=== PATIENT | male | born 1960 | race Two or more races ===

== ENCOUNTER 2017-09-23 08:59 | Inpatient (IN) | payer SELFPAY ==
[2017-09-23] MEDS: methylPREDNISolone SOD SUCC PF 125 MG/2 ML VIAL. IV ×4 (09:14→23:59)
[2017-09-23] MEDS: IPRATRPIUM/ALBUTEROL 0.5/2.5MG 3 ML NEBU. NEB ×6 (09:24→23:10)
[2017-09-23 09:29] LABS: BASO # 0.1 x10^3/uL (0.0-0.2); BASO % 1 % (0-3); EOS # 4.3 x10^3/uL (0.0-0.7); EOS % 24 % (0-3); HEMATOCRIT 52.2 % (39.0-53.0); HEMOGLOBIN 17.7 g/dL (13.0-17.5); LYMPH # 3.2 x10^3/uL (1.0-4.8); LYMPH % 18 % (24-48); MEAN CORPUSCULAR HEMOGLOBIN 33 pg (25-35); MEAN CORPUSCULAR HGB CONC 34 g/dL (31-37); MEAN CORPUSCULAR VOLUME 97 fL (79-100); MONO # 1.5 x10^3/uL (0.0-1.1); MONO % 9 % (0-9); NEUT # 8.9 x10^3uL (1.8-7.7); NEUT % 49 % (31-73); PLATELET COUNT 278 x10^3/uL (140-400); RED BLOOD COUNT 5.38 x10^6/uL (4.30-5.70); RED CELL DISTRIBUTION WIDTH 13.3 % (11.5-14.5); WHITE BLOOD COUNT 17.9 x10^3/uL (4.0-11.0)
[2017-09-23 09:35] LABS: ADD MAN DIFF? YES
[2017-09-23] MEDS: ALBUTEROL SULFATE 2.5 MG/3 ML NEBU. CONT NEB (09:38)
[2017-09-23] MEDS ORDERED: PROPOFOL 50 ML IV (10:15)
[2017-09-23] MEDS ORDERED: NITROGLYCERIN OINT 1 GM PACKET. TP (10:15)
[2017-09-23 10:18] LABS: INFLUENZA A PATIENT NEGATIVE (NEGATIVE); INFLUENZA B PATIENT NEGATIVE (NEGATIVE); OBC FLU VALID
[2017-09-23] MEDS: PROPOFOL 10 MG/ML (20ML) VIAL. IV (10:22)
[2017-09-23 10:26] LABS: ANION GAP 8 (6-14); BLOOD UREA NITROGEN 12 mg/dL (8-26); BUN/CREATININE RATIO 17 (6-20); CALCIUM 9.2 mg/dL (8.5-10.1); CARBON DIOXIDE 32 mmol/L (21-32); CHLORIDE 98 mmol/L (98-107); CREATININE 0.7 mg/dL (0.7-1.3); GFR 116.7; GLUCOSE 137 mg/dL (70-99); POTASSIUM 4.8 mmol/L (3.5-5.1); SODIUM 138 mmol/L (136-145)
[2017-09-23] MEDS: IV NORMAL SALINE 1000ML BAG 1,000 ML IV ×3 (10:27→20:47)
[2017-09-23] MEDS: MIDAZOLAM HCL/PF 5 MG/5 ML VIAL. IV ×2 (10:27→10:44)
[2017-09-23] MEDS: fentaNYL PF VIAL 100 MCG/2 ML VIAL IV ×2 (10:28→11:03)
[2017-09-23] MEDS ORDERED: NOREPINEPHRINE VIAL 16 MG in IV NORMAL SALINE 250ML 250 ML IV (10:30)
[2017-09-23] MEDS ORDERED: NOREPINEPHRIN PREMIX 250 ML IV (10:30)
[2017-09-23] MEDS: AZITHRMYCN 500MG IVPB FOR OMNI 250 ML IV (10:33)
[2017-09-23 10:34] LABS: TROPONINI < 0.017 ng/mL (0.000-0.055)
[2017-09-23 10:36] LABS: BASE EXCESS ABG -4 mmol/L (-3-3); FIO2 ABG 10 lpm mask; HCO3 ABG 30 mmol/L (21-28); PCO2 ABG 94 mmHg (35-46); PH ABG 7.12 (7.35-7.45); PO2 ABG 232 mmHg (75-108); SAT O2 ABG 99 % (92-99)
[2017-09-23 10:42] LABS: ALBUMIN 4.2 g/dL (3.4-5.0); ALBUMIN/GLOBULIN RATIO 1.1 (1.0-1.7); ALK PHOS 88 U/L (46-116); ALT (SGPT) 14 U/L (16-63); AST (SGOT) 22 U/L (15-37); CKMB INDEX 5.3 % (0-4); CKMB MASS 4.9 ng/mL (0.0-3.6); CREATINE KINASE 92 U/L (39-308); TOTAL BILIRUBIN 1.5 mg/dL (0.2-1.0); TOTAL PROTEIN 7.9 g/dL (6.4-8.2)
[2017-09-23 10:48] LABS: LACTIC ACID 1.9 mmol/L (0.4-2.0)
[2017-09-23 10:48] LABS: % ATYL 1 % (0-0); % BANDS 2 % (0-9); % BASOS 2 % (0-3); % EOS 18 % (0-5); % LYMPHS 23 % (24-48); % MONOS 7 % (0-10); % SEGS 47 % (35-66); PLT ESTIMATE ADEQUATE (ADEQUATE)
[2017-09-23] MEDS: MAGNESIUM SULFATE 2GM 50 ML IV (10:50)
[2017-09-23] MEDS ORDERED: ONDANSETRON PF 4 MG/2 ML VIAL. IV (11:00)
[2017-09-23] MEDS: NOREPINEPHRIN PREMIX 250 ML IV (11:05)
[2017-09-23] MEDS ORDERED: VECURONIUM BOLUS 10 MG VIAL. IV (11:52)
[2017-09-23] MEDS: VECURONIUM BOLUS 10 MG VIAL. IV (12:00)
[2017-09-23] MEDS ORDERED: ENOXAPARIN 40 MG/0.4 ML SYRINGE. SQ (12:00)
[2017-09-23] MEDS: MIDAZOLAM 100MG/100ML PREMIX 100 ML IV ×2 (12:26→18:07)
[2017-09-23 12:59] LABS: BASE EXCESS ABG -7 mmol/L (-3-3); HCO3 ABG 21 mmol/L (21-28); PCO2 ABG 50 mmHg (35-46); PH ABG 7.24 (7.35-7.45); PO2 ABG > 503 mmHg (75-108); SAT O2 ABG 99 % (92-99)
[2017-09-23 13:05] LABS: FIO2 ABG 100
[2017-09-23] MEDS: cefTRIAXone IV Push 1 GM VIAL. IVP (13:11)
[2017-09-23] MEDS ORDERED: ETOMIDATE 20 MG/10 ML VIAL. IV (13:16)
[2017-09-23] MEDS ORDERED: SUCCINYLCHOLINE 200 MG/10 ML VIAL. (13:17)
[2017-09-23] MEDS: ALBUTEROL SULFATE 2.5 MG/3 ML NEBU. NEB ×3 (13:22→21:05)
[2017-09-23 17:45] LABS: TROPONINI < 0.017 ng/mL (0.000-0.055)
[2017-09-23] MEDS: ENOXAPARIN 40 MG/0.4 ML SYRINGE. SQ (18:07)
[2017-09-23] MEDS: FLU VACC QS2017-18 (36MOS+)/PF 0.5 ML SYRINGE. VAX IM (19:00)
[2017-09-23] MEDS: FAMOTIDINE 20 MG/2 ML VIAL IVP (20:47)
[2017-09-23 23:23] LABS: TROPONINI < 0.017 ng/mL (0.000-0.055)
[2017-09-24] MEDS: NOREPINEPHRIN PREMIX 250 ML IV (00:54)
[2017-09-24] MEDS: ALBUTEROL SULFATE 2.5 MG/3 ML NEBU. NEB (01:10)
[2017-09-24] MEDS: MIDAZOLAM 100MG/100ML PREMIX 100 ML IV ×3 (01:38→22:59)
[2017-09-24] MEDS: IV NORMAL SALINE 1000ML BAG 1,000 ML IV ×4 (02:15→23:41)
[2017-09-24] MEDS: IPRATRPIUM/ALBUTEROL 0.5/2.5MG 3 ML NEBU. NEB ×6 (03:10→23:56)
[2017-09-24 05:15] LABS: ADD MAN DIFF? NO
[2017-09-24] MEDS: methylPREDNISolone SOD SUCC PF 125 MG/2 ML VIAL. IV ×4 (05:33→23:41)
[2017-09-24 06:05] LABS: BASO % 0 % (0-3); EOS % 0 % (0-3); HEMATOCRIT 39.7 % (39.0-53.0); HEMOGLOBIN 13.2 g/dL (13.0-17.5); LYMPH # 0.6 x10^3/uL (1.0-4.8); LYMPH % 5 % (24-48); MEAN CORPUSCULAR HEMOGLOBIN 32 pg (25-35); MEAN CORPUSCULAR HGB CONC 33 g/dL (31-37); MEAN CORPUSCULAR VOLUME 97 fL (79-100); MONO # 0.4 x10^3/uL (0.0-1.1); MONO % 3 % (0-9); NEUT # 10.5 x10^3uL (1.8-7.7); NEUT % 92 % (31-73); PLATELET COUNT 214 x10^3/uL (140-400); RED BLOOD COUNT 4.09 x10^6/uL (4.30-5.70); RED CELL DISTRIBUTION WIDTH 13.2 % (11.5-14.5); WHITE BLOOD COUNT 11.5 x10^3/uL (4.0-11.0)
[2017-09-24 06:14] LABS: ANION GAP 11 (6-14); BLOOD UREA NITROGEN 11 mg/dL (8-26); CALCIUM 7.7 mg/dL (8.5-10.1); CARBON DIOXIDE 23 mmol/L (21-32); CHLORIDE 107 mmol/L (98-107); CREATININE 0.9 mg/dL (0.7-1.3); GFR 87.3; GLUCOSE 230 mg/dL (70-99); POTASSIUM 4.2 mmol/L (3.5-5.1); SODIUM 141 mmol/L (136-145)
[2017-09-24 06:16] LABS: MAGNESIUM 2.2 mg/dL (1.8-2.4)
[2017-09-24 08:27] LABS: BASE EXCESS ABG -2 mmol/L (-3-3); HCO3 ABG 23 mmol/L (21-28); PCO2 ABG 39 mmHg (35-46); PH ABG 7.38 (7.35-7.45); PO2 ABG 113 mmHg (75-108); SAT O2 ABG 98 % (92-99)
[2017-09-24 08:29] LABS: FIO2 ABG 40
[2017-09-24] MEDS: FAMOTIDINE 20 MG/2 ML VIAL IVP ×2 (08:33→21:08)
[2017-09-24] MEDS: cefTRIAXone IV Push 1 GM VIAL. IVP (13:43)
[2017-09-24 13:58] LABS: TROPONINI < 0.017 ng/mL (0.000-0.055)
[2017-09-24] MEDS ORDERED: AZITHRMYCN 500MG IVPB FOR OMNI 250 ML IV (15:15)
[2017-09-24] MEDS: ENOXAPARIN 40 MG/0.4 ML SYRINGE. SQ (16:09)
[2017-09-24] MEDS: AZITHROMYCIN 500 MG in IV NORMAL SALINE 250ML 250 ML IV (16:09)
[2017-09-24 21:13] LABS: MRSA BY PCR Negative (Negative)
[2017-09-25] MEDS: IPRATRPIUM/ALBUTEROL 0.5/2.5MG 3 ML NEBU. NEB ×6 (03:27→23:21)
[2017-09-25 05:29] LABS: ADD MAN DIFF? NO
[2017-09-25 05:44] LABS: BASO % 0 % (0-3); EOS % 0 % (0-3); HEMATOCRIT 37.3 % (39.0-53.0); HEMOGLOBIN 12.5 g/dL (13.0-17.5); LYMPH # 0.5 x10^3/uL (1.0-4.8); LYMPH % 4 % (24-48); MEAN CORPUSCULAR HEMOGLOBIN 32 pg (25-35); MEAN CORPUSCULAR HGB CONC 34 g/dL (31-37); MEAN CORPUSCULAR VOLUME 97 fL (79-100); MONO # 0.5 x10^3/uL (0.0-1.1); MONO % 3 % (0-9); NEUT # 13.3 x10^3uL (1.8-7.7); NEUT % 93 % (31-73); PLATELET COUNT 180 x10^3/uL (140-400); RED BLOOD COUNT 3.86 x10^6/uL (4.30-5.70); RED CELL DISTRIBUTION WIDTH 13.2 % (11.5-14.5); WHITE BLOOD COUNT 14.3 x10^3/uL (4.0-11.0)
[2017-09-25] MEDS: methylPREDNISolone SOD SUCC PF 125 MG/2 ML VIAL. IV ×3 (05:53→17:24)
[2017-09-25 06:09] LABS: ALBUMIN 2.4 g/dL (3.4-5.0); ALBUMIN/GLOBULIN RATIO 0.8 (1.0-1.7); ALK PHOS 42 U/L (46-116); ALT (SGPT) 9 U/L (16-63); ANION GAP 6 (6-14); AST (SGOT) 12 U/L (15-37); BLOOD UREA NITROGEN 11 mg/dL (8-26); BUN/CREATININE RATIO 16 (6-20); CALCIUM 7.6 mg/dL (8.5-10.1); CARBON DIOXIDE 27 mmol/L (21-32); CHLORIDE 108 mmol/L (98-107); CREATININE 0.7 mg/dL (0.7-1.3); GFR 116.7; GLUCOSE 243 mg/dL (70-99); MAGNESIUM 2.4 mg/dL (1.8-2.4); POTASSIUM 3.7 mmol/L (3.5-5.1); SODIUM 141 mmol/L (136-145); TOTAL BILIRUBIN 0.3 mg/dL (0.2-1.0); TOTAL PROTEIN 5.4 g/dL (6.4-8.2)
[2017-09-25 08:08] LABS: BASE EXCESS ABG -3 mmol/L (-3-3); HCO3 ABG 21 mmol/L (21-28); PCO2 ABG 35 mmHg (35-46); PH ABG 7.41 (7.35-7.45); PO2 ABG 127 mmHg (75-108); SAT O2 ABG 98 % (92-99)
[2017-09-25 08:11] LABS: FIO2 ABG 40
[2017-09-25] MEDS ORDERED: AZITHROMYCIN 500 MG in IV NORMAL SALINE 500ML BAG 500 ML IV (09:00)
[2017-09-25] MEDS: FAMOTIDINE 20 MG/2 ML VIAL IVP ×2 (09:24→21:34)
[2017-09-25] MEDS: AZITHROMYCIN 500 MG in IV NORMAL SALINE 250ML 250 ML IV (09:25)
[2017-09-25] MEDS: ALBUTEROL SULFATE 2.5 MG/3 ML NEBU. NEB ×3 (09:53→17:38)
[2017-09-25] MEDS: MIDAZOLAM 100MG/100ML PREMIX 100 ML IV (11:28)
[2017-09-25] MEDS: cefTRIAXone IV Push 1 GM VIAL. IVP (12:18)
[2017-09-25] MEDS: IV NORMAL SALINE 1000ML BAG 1,000 ML IV ×2 (12:25→17:24)
[2017-09-25] MEDS: PROPOFOL 100 ML IV (15:20)
[2017-09-25] MEDS: ENOXAPARIN 40 MG/0.4 ML SYRINGE. SQ (15:24)
[2017-09-25] MEDS ORDERED: AZITHRMYCN 500MG IVPB FOR OMNI 250 ML IV (16:00)
[2017-09-26] MEDS: PROPOFOL 100 ML IV ×2 (00:15→19:37)
[2017-09-26] MEDS: IV NORMAL SALINE 1000ML BAG 1,000 ML IV ×3 (01:25→19:37)
[2017-09-26] MEDS: ALBUTEROL SULFATE 2.5 MG/3 ML NEBU. NEB ×3 (01:32→09:00)
[2017-09-26] MEDS: IPRATRPIUM/ALBUTEROL 0.5/2.5MG 3 ML NEBU. NEB ×5 (04:07→20:07)
[2017-09-26] MEDS: methylPREDNISolone SOD SUCC PF 125 MG/2 ML VIAL. IV ×5 (06:01→23:55)
[2017-09-26] MEDS ORDERED: NITROGLYCERIN PREMIX 250 ML IV (07:00)
[2017-09-26] MEDS: LABETALOL 20 MG/4 ML DISP.SYRIN. IVP (09:09)
[2017-09-26] MEDS: CHLORHEXIDINE 0.12% 15 ML MOUTHWASH. MM ×2 (09:12→21:00)
[2017-09-26] MEDS: FAMOTIDINE 20 MG/2 ML VIAL IVP ×2 (09:14→21:06)
[2017-09-26 10:02] LABS: BASE EXCESS ABG 0 mmol/L (-3-3); HCO3 ABG 26 mmol/L (21-28); PCO2 ABG 47 mmHg (35-46); PH ABG 7.36 (7.35-7.45); PO2 ABG 102 mmHg (75-108); SAT O2 ABG 97 % (92-99)
[2017-09-26 10:22] LABS: FIO2 ABG 40
[2017-09-26] MEDS: hydrALAZINE 20 MG/ML VIAL. IVP (12:37)
[2017-09-26] MEDS ORDERED: DEXTROSE 50% 25 GM / 50ML DISP.SYRIN. IV (14:00)
[2017-09-26] MEDS: INSULIN DETEMIR 300 UNITS/3 ML INSULN.PEN. SQ (14:30)
[2017-09-26] MEDS: ENOXAPARIN 40 MG/0.4 ML SYRINGE. SQ (16:56)
[2017-09-26 17:10] LABS: POC GLUCOSE 197 mg/dL (70-99)
[2017-09-26] MEDS: INSULIN ASPART 300 UNITS/3 ML INSULN.PEN SQ (17:14)
[2017-09-27] MEDS: IPRATRPIUM/ALBUTEROL 0.5/2.5MG 3 ML NEBU. NEB ×7 (00:29→23:22)
[2017-09-27] MEDS: IV NORMAL SALINE 1000ML BAG 1,000 ML IV ×2 (03:17→10:05)
[2017-09-27] MEDS: PROPOFOL 100 ML IV (03:18)
[2017-09-27] MEDS: methylPREDNISolone SOD SUCC PF 125 MG/2 ML VIAL. IV ×4 (06:03→23:31)
[2017-09-27 09:03] LABS: BASE EXCESS ABG 3 mmol/L (-3-3); HCO3 ABG 27 mmol/L (21-28); PCO2 ABG 37 mmHg (35-46); PH ABG 7.48 (7.35-7.45); PO2 ABG 108 mmHg (75-108); SAT O2 ABG 98 % (92-99)
[2017-09-27] MEDS: LABETALOL 20 MG/4 ML DISP.SYRIN. IVP (10:02)
[2017-09-27] MEDS: FAMOTIDINE 20 MG/2 ML VIAL IVP ×2 (10:04→21:33)
[2017-09-27] MEDS: CHLORHEXIDINE 0.12% 15 ML MOUTHWASH. MM (10:04)
[2017-09-27] MEDS: INSULIN ASPART 300 UNITS/3 ML INSULN.PEN SQ ×3 (10:08→18:00)
[2017-09-27] MEDS: BUDESONIDE 0.5 MG/2 ML NEBU. NEB ×2 (11:36→19:22)
[2017-09-27 12:25] LABS: BASE EXCESS ABG 2 mmol/L (-3-3); HCO3 ABG 25 mmol/L (21-28); PO2 ABG 123 mmHg (75-108); SAT O2 ABG 98 % (92-99)
[2017-09-27 12:29] LABS: PH ABG 7.49 (7.35-7.45)
[2017-09-27 12:30] LABS: FIO2 ABG 40; PCO2 ABG 34 mmHg (35-46)
[2017-09-27 13:48] LABS: POC GLUCOSE 216 mg/dL (70-99)
[2017-09-27] MEDS: RACEPINEPHRINE 2.25% 0.5 ML NEBU. NEB (17:02)
[2017-09-27] MEDS: ENOXAPARIN 40 MG/0.4 ML SYRINGE. SQ (17:55)
[2017-09-27 18:04] LABS: POC GLUCOSE 167 mg/dL (70-99)
[2017-09-27] MEDS: fentaNYL PF VIAL 100 MCG/2 ML VIAL IV (20:20)
[2017-09-28] MEDS: fentaNYL PF VIAL 100 MCG/2 ML VIAL IV (00:11)
[2017-09-28] MEDS: ALBUTEROL SULFATE 2.5 MG/3 ML NEBU. NEB (01:01)
[2017-09-28] MEDS: IPRATRPIUM/ALBUTEROL 0.5/2.5MG 3 ML NEBU. NEB ×6 (03:21→23:23)
[2017-09-28] MEDS: methylPREDNISolone SOD SUCC PF 125 MG/2 ML VIAL. IV ×4 (03:35→19:35)
[2017-09-28] MEDS: IV NORMAL SALINE 1000ML BAG 1,000 ML IV (03:35)
[2017-09-28] MEDS: RACEPINEPHRINE 2.25% 0.5 ML NEBU. NEB (03:40)
[2017-09-28] MEDS: hydrALAZINE 20 MG/ML VIAL. IVP ×4 (04:14→10:46)
[2017-09-28 06:04] LABS: SAT O2 ABG 96 % (92-99)
[2017-09-28 06:15] LABS: BASE EXCESS ABG 4 mmol/L (-3-3); FIO2 ABG 50; HCO3 ABG 29 mmol/L (21-28); PCO2 ABG 40 mmHg (35-46); PH ABG 7.47 (7.35-7.45); PO2 ABG 88 mmHg (75-108)
[2017-09-28] MEDS: FUROSEMIDE 20 MG/2 ML VIAL. IVP (06:39)
[2017-09-28] MEDS: BUDESONIDE 0.5 MG/2 ML NEBU. NEB ×2 (07:35→19:35)
[2017-09-28] MEDS: PIPERACILLIN/TAZOBACTAM 3.375 GM in IV NORMAL SALINE 50ML 50 ML IV ×3 (08:31→17:07)
[2017-09-28] MEDS: ENOXAPARIN 40 MG/0.4 ML SYRINGE. SQ (08:31)
[2017-09-28] MEDS: BENZOCAINE/MENTHOL LOZENGE. PO (08:33)
[2017-09-28] MEDS: FAMOTIDINE 20 MG/2 ML VIAL IVP ×2 (08:36→21:33)
[2017-09-28] MEDS: MORPHINE SULFATE 2 MG/ML DISP.SYRIN. IV ×2 (09:23→17:07)
[2017-09-28] MEDS: INSULIN ASPART 300 UNITS/3 ML INSULN.PEN SQ ×3 (09:35→17:27)
[2017-09-28 09:57] LABS: ADD MAN DIFF? NO
[2017-09-28 10:18] LABS: BASO % 0 % (0-3); EOS % 0 % (0-3); HEMATOCRIT 47.1 % (39.0-53.0); LYMPH # 0.2 x10^3/uL (1.0-4.8); LYMPH % 1 % (24-48); MEAN CORPUSCULAR HEMOGLOBIN 33 pg (25-35); MEAN CORPUSCULAR HGB CONC 34 g/dL (31-37); MEAN CORPUSCULAR VOLUME 96 fL (79-100); MONO # 1.1 x10^3/uL (0.0-1.1); MONO % 6 % (0-9); NEUT # 16.9 x10^3uL (1.8-7.7); NEUT % 93 % (31-73); PLATELET COUNT 161 x10^3/uL (140-400); RED BLOOD COUNT 4.91 x10^6/uL (4.30-5.70); RED CELL DISTRIBUTION WIDTH 13.1 % (11.5-14.5); WHITE BLOOD COUNT 18.3 x10^3/uL (4.0-11.0)
[2017-09-28 10:21] LABS: ALBUMIN 2.6 g/dL (3.4-5.0); ALBUMIN/GLOBULIN RATIO 0.7 (1.0-1.7); ALK PHOS 56 U/L (46-116); ALT (SGPT) 20 U/L (16-63); ANION GAP 6 (6-14); AST (SGOT) 30 U/L (15-37); BLOOD UREA NITROGEN 17 mg/dL (8-26); BUN/CREATININE RATIO 28 (6-20); CALCIUM 7.9 mg/dL (8.5-10.1); CARBON DIOXIDE 36 mmol/L (21-32); CHLORIDE 100 mmol/L (98-107); CREATININE 0.6 mg/dL (0.7-1.3); GFR 139.4; GLUCOSE 203 mg/dL (70-99); POTASSIUM 3.1 mmol/L (3.5-5.1); SODIUM 142 mmol/L (136-145); TOTAL BILIRUBIN 0.6 mg/dL (0.2-1.0); TOTAL PROTEIN 6.2 g/dL (6.4-8.2)
[2017-09-28] MEDS ORDERED: LABETALOL 20 MG/4 ML DISP.SYRIN. IVP (12:45)
[2017-09-28] MEDS: LABETALOL 20 MG/4 ML DISP.SYRIN. IVP ×2 (12:52→21:32)
[2017-09-28 12:57] LABS: POC GLUCOSE 176 mg/dL (70-99)
[2017-09-28 17:29] LABS: POC GLUCOSE 167 mg/dL (70-99)
[2017-09-29] MEDS: methylPREDNISolone SOD SUCC PF 125 MG/2 ML VIAL. IV ×4 (00:11→17:10)
[2017-09-29] MEDS: PIPERACILLIN/TAZOBACTAM 3.375 GM in IV NORMAL SALINE 50ML 50 ML IV ×4 (00:12→17:10)
[2017-09-29] MEDS: IPRATRPIUM/ALBUTEROL 0.5/2.5MG 3 ML NEBU. NEB ×5 (03:21→19:51)
[2017-09-29 06:26] LABS: POC GLUCOSE 165 mg/dL (70-99)
[2017-09-29 06:26] LABS: POC GLUCOSE 165 mg/dL (70-99)
[2017-09-29] MEDS: BUDESONIDE 0.5 MG/2 ML NEBU. NEB ×2 (09:19→19:51)
[2017-09-29] MEDS: INSULIN ASPART 300 UNITS/3 ML INSULN.PEN SQ ×3 (09:54→17:15)
[2017-09-29 10:21] LABS: HEMATOCRIT 44.5 % (39.0-53.0); MEAN CORPUSCULAR HEMOGLOBIN 32 pg (25-35); MEAN CORPUSCULAR HGB CONC 34 g/dL (31-37); MEAN CORPUSCULAR VOLUME 96 fL (79-100); PLATELET COUNT 155 x10^3/uL (140-400); RED BLOOD COUNT 4.63 x10^6/uL (4.30-5.70); WHITE BLOOD COUNT 11.4 x10^3/uL (4.0-11.0)
[2017-09-29 10:34] LABS: ANION GAP 7 (6-14); BLOOD UREA NITROGEN 22 mg/dL (8-26); CALCIUM 7.8 mg/dL (8.5-10.1); CARBON DIOXIDE 33 mmol/L (21-32); CHLORIDE 99 mmol/L (98-107); CREATININE 0.7 mg/dL (0.7-1.3); GFR 116.7; GLUCOSE 252 mg/dL (70-99); MAGNESIUM 2.3 mg/dL (1.8-2.4); POTASSIUM 3.4 mmol/L (3.5-5.1); SODIUM 139 mmol/L (136-145)
[2017-09-29] MEDS: FAMOTIDINE 20 MG/2 ML VIAL IVP ×2 (11:12→20:29)
[2017-09-29] MEDS: ENOXAPARIN 40 MG/0.4 ML SYRINGE. SQ (17:10)
[2017-09-29] MEDS: LACTOBACILLUS RHAMNOSUS GG 1 CAPSULE. PO (20:29)
[2017-09-30] MEDS: IPRATRPIUM/ALBUTEROL 0.5/2.5MG 3 ML NEBU. NEB ×6 (00:02→19:36)
[2017-09-30] MEDS: methylPREDNISolone SOD SUCC PF 125 MG/2 ML VIAL. IV ×2 (00:23→06:09)
[2017-09-30] MEDS: PIPERACILLIN/TAZOBACTAM 3.375 GM in IV NORMAL SALINE 50ML 50 ML IV ×2 (00:23→06:09)
[2017-09-30 04:58] LABS: POC GLUCOSE 254 mg/dL (70-99)
[2017-09-30 04:58] LABS: POC GLUCOSE 211 mg/dL (70-99)
[2017-09-30 04:58] LABS: POC GLUCOSE 238 mg/dL (70-99)
[2017-09-30 04:58] LABS: POC GLUCOSE 200 mg/dL (70-99)
[2017-09-30] MEDS: BUDESONIDE 0.5 MG/2 ML NEBU. NEB ×2 (07:32→19:36)
[2017-09-30 08:10] LABS: HEMATOCRIT 42.9 % (39.0-53.0); HEMOGLOBIN 14.5 g/dL (13.0-17.5); MEAN CORPUSCULAR HEMOGLOBIN 32 pg (25-35); MEAN CORPUSCULAR HGB CONC 34 g/dL (31-37); MEAN CORPUSCULAR VOLUME 95 fL (79-100); PLATELET COUNT 171 x10^3/uL (140-400); RED BLOOD COUNT 4.49 x10^6/uL (4.30-5.70); RED CELL DISTRIBUTION WIDTH 12.8 % (11.5-14.5); WHITE BLOOD COUNT 9.2 x10^3/uL (4.0-11.0)
[2017-09-30 08:12] LABS: POC GLUCOSE 220 mg/dL (70-99)
[2017-09-30] MEDS: FAMOTIDINE 20 MG/2 ML VIAL IVP ×2 (08:17→22:51)
[2017-09-30] MEDS: LACTOBACILLUS RHAMNOSUS GG 1 CAPSULE. PO ×2 (08:17→22:48)
[2017-09-30] MEDS: INSULIN ASPART 300 UNITS/3 ML INSULN.PEN SQ ×3 (08:18→17:08)
[2017-09-30 08:28] LABS: ANION GAP 8 (6-14); BLOOD UREA NITROGEN 20 mg/dL (8-26); CALCIUM 8.4 mg/dL (8.5-10.1); CARBON DIOXIDE 31 mmol/L (21-32); CHLORIDE 101 mmol/L (98-107); CREATININE 0.6 mg/dL (0.7-1.3); GFR 139.4; GLUCOSE 229 mg/dL (70-99); POTASSIUM 3.2 mmol/L (3.5-5.1); SODIUM 140 mmol/L (136-145)
[2017-09-30] MEDS: predniSONE 20 MG TABLET PO (11:00)
[2017-09-30 13:42] LABS: POC GLUCOSE 268 mg/dL (70-99)
[2017-09-30] MEDS: ENOXAPARIN 40 MG/0.4 ML SYRINGE. SQ (17:04)
[2017-09-30 17:09] LABS: POC GLUCOSE 192 mg/dL (70-99)
[2017-09-30] MEDS ORDERED: POTASSIUM CHLORIDE 20 MEQ TABLET.ER. PO ×2 (18:15→18:30)
[2017-09-30] MEDS: POTASSIUM CHLORIDE 20 MEQ TABLET.ER. PO (22:49)
[2017-10-01] MEDS: IPRATRPIUM/ALBUTEROL 0.5/2.5MG 3 ML NEBU. NEB ×7 (00:12→23:37)
[2017-10-01] MEDS: BUDESONIDE 0.5 MG/2 ML NEBU. NEB ×2 (07:33→19:39)
[2017-10-01] MEDS: INSULIN ASPART 300 UNITS/3 ML INSULN.PEN SQ ×3 (08:00→17:29)
[2017-10-01 08:23] LABS: POC GLUCOSE 70 mg/dL (70-99)
[2017-10-01] MEDS: predniSONE 20 MG TABLET PO (08:54)
[2017-10-01] MEDS: FAMOTIDINE 20 MG/2 ML VIAL IVP (08:54)
[2017-10-01] MEDS: LACTOBACILLUS RHAMNOSUS GG 1 CAPSULE. PO ×2 (08:54→20:35)
[2017-10-01] MEDS ORDERED: ACETAMINOPHEN 500 MG TABLET PO (11:00)
[2017-10-01 11:23] LABS: POC GLUCOSE 147 mg/dL (70-99)
[2017-10-01] MEDS: IBUPROFEN 400 MG TABLET. PO (12:19)
[2017-10-01 16:36] LABS: POC GLUCOSE 219 mg/dL (70-99)
[2017-10-01] MEDS: ENOXAPARIN 40 MG/0.4 ML SYRINGE. SQ (17:24)
[2017-10-01] MEDS: FAMOTIDINE 20 MG TABLET. PO (20:35)
[2017-10-01 21:10] LABS: POC GLUCOSE 188 mg/dL (70-99)
[2017-10-02] MEDS: IPRATRPIUM/ALBUTEROL 0.5/2.5MG 3 ML NEBU. NEB ×4 (03:18→14:50)
[2017-10-02 07:50] LABS: POC GLUCOSE 101 mg/dL (70-99)
[2017-10-02] MEDS: BUDESONIDE 0.5 MG/2 ML NEBU. NEB (07:58)
[2017-10-02] MEDS: INSULIN ASPART 300 UNITS/3 ML INSULN.PEN SQ ×3 (08:00→17:18)
[2017-10-02] MEDS: FAMOTIDINE 20 MG TABLET. PO (08:33)
[2017-10-02] MEDS: LACTOBACILLUS RHAMNOSUS GG 1 CAPSULE. PO (08:33)
[2017-10-02] MEDS: predniSONE 20 MG TABLET PO (08:33)
[2017-10-02] MEDS: IBUPROFEN 400 MG TABLET. PO (08:37)
[2017-10-02 11:22] LABS: POC GLUCOSE 134 mg/dL (70-99)
[2017-10-02 16:29] LABS: POC GLUCOSE 202 mg/dL (70-99)
[2017-10-02] MEDS: ENOXAPARIN 40 MG/0.4 ML SYRINGE. SQ (17:08)
[2017-10-02] MEDS: FLU VACC QS2017-18 (36MOS+)/PF 0.5 ML SYRINGE. VAX IM (18:30)
== END 2017-10-02 19:26 | disposition home or self-care (01) | DRG 870 ==
LOC: 5 NORTH 09-30 20:25 → ER 08:59 → 1 WEST ICU 10:30
PROC: 5A1955Z Respiratory Ventilation, Greater than 96 Consecutive Hours (ICD-10-PCS; 2017-09-23)
PROC: 5A09357 Assistance with Respiratory Ventilation, Less than 24 Consecutive Hours, Continuous Positive Airway Pressure (ICD-10-PCS; principal; 2017-09-28)
DX: A41.89 Other specified sepsis (principal); R57.9 Shock, unspecified; J96.02 Acute respiratory failure with hypercapnia; J96.01 Acute respiratory failure with hypoxia; J45.902 Unspecified asthma with status asthmaticus; I16.0 Hypertensive urgency; J20.9 Acute bronchitis, unspecified; B97.89 Other viral agents as the cause of diseases classified elsewhere
CPT/HCPCS: 31500; 36415; 36600; 51702; 71045; 80048; 80053; 82553; 82805; 82962; 83605; 83735; 84484; 85007; 85025; 85027; 87040; 87641; 87804; 87804-59; 90686; 93005; 93306; 94002; 94003; 94640; 94644; 94660; 94760; 96365; 96375; 96376; 97110-GO; 97116-GP; 97162-GP; 97167-GO; 97530-GO; 97530-GP; 97535-GO; 99285-25; J0360; J0456; J0696; J1650; J1815; J2060; J2250; J2270; J2543; J2704; J2930; J3010; J3490; J7030; J7050; J7060; J7512; J7613; J7620; J7626; S0028

== ENCOUNTER 2018-05-01 10:40 | Inpatient (IN) | payer BC ==
[~2018-05-01] VITALS: Ht 162.6 cm; Wt 66.2 kg
[~2018-05-01 10:40] MED LIST: BREO ELLIPTA 11 EACH IH; BUDE180A IH; MONT10TA9 PO; PANT40TA5 PO; PRED-220 PO; PROAIR HFA8.5 GM INH
[2018-05-01] MEDS ORDERED: EPINEPHrine 1 MG/ML VIAL ONE (10:52)
--- NOTE | 2018-05-01 10:56 | EKG ---
[facility] [address] [place] [address] Test Date: 2018-05-01 Test Time: 10:46:35 Pat Name: JAMES LONDON Department: Room: Gender: M Domestic Maid: : 1960 Requested By: MAULIK NUNO Order Number: [id number] Reading MD: Cj Waggoner MD Measurements Intervals [place] Rate: 103 P: 45 MT: 58 QRS: 69 QRSD: 100 T: 45 QT: 392 QTc: 516 Interpretive Statements SINUS TACHYCARDIA NON-SPECIFIC ST/T CHANGES Electronically Signed On 05-01-2018 12:32:30 CDT by Cj Waggoner MD
[2018-05-01] MEDS ORDERED: IPRATRPIUM/ALBUTEROL 0.5/2.5MG 3 ML NEBU. NEB ONE (11:00)
[2018-05-01] MEDS ORDERED: methylPREDNISolone SOD SUCC PF 125 MG/2 ML VIAL. IV ONE (11:00)
[2018-05-01] MEDS ORDERED: EPINEPHrine 1 MG/ML VIAL SQ ONE (11:00)
[2018-05-01] MEDS ORDERED: ALBUTEROL SULFATE 2.5 MG/3 ML NEBU. ONE (11:07)
--- NOTE | 2018-05-01 11:14 | RAD ---
Portable chest, 05/01/2018: HISTORY: Shortness of breath, asthma, CHF Comparison is made to a study from 09/29/2017. The heart size and pulmonary vascularity are normal. The lungs are clear. There is no evidence of pleural fluid. IMPRESSION: No acute cardiopulmonary abnormality is detected. Electronically signed by: Prakash Chatman MD (05/01/2018 11:11 AM) [facility]
[2018-05-01 11:21] LABS: BASO % 1 % (0-3); EOS # 0.9 x10^3/uL (0.0-0.7); EOS % 10 % (0-3); HEMATOCRIT 51.1 % (39.0-53.0); HEMOGLOBIN 17.9 g/dL (13.0-17.5); LYMPH # 2.1 x10^3/uL (1.0-4.8); LYMPH % 25 % (24-48); MEAN CORPUSCULAR HEMOGLOBIN 34 pg (25-35); MEAN CORPUSCULAR HGB CONC 35 g/dL (31-37); MEAN CORPUSCULAR VOLUME 97 fL (79-100); MONO # 0.8 x10^3/uL (0.0-1.1); MONO % 9 % (0-9); NEUT # 4.9 x10^3uL (1.8-7.7); NEUT % 56 % (31-73); PLATELET COUNT 243 x10^3/uL (140-400); RED CELL DISTRIBUTION WIDTH 14.3 % (11.5-14.5); WHITE BLOOD COUNT 8.7 x10^3/uL (4.0-11.0)
[2018-05-01 11:23] LABS: BASE EXCESS COOX 2 mmol/L (-3-3); HCO3 COOX 29 mmol/L (21-28); METHEMOGLOBIN 0.4 % (0.0-1.9); OXYHEMOGLOBIN 95.9 %; PCO2 COOX 53 mmHg (35-46); PO2 COOX 91 mmHg (75-108); SAT O2 COOX 96 % (92-99)
[2018-05-01 11:27] LABS: CREATININE 0.9 mg/dL (0.7-1.3); POTASSIUM 4.2 mmol/L (3.5-5.1)
[2018-05-01 11:28] LABS: ALBUMIN 4.2 g/dL (3.4-5.0); ALBUMIN/GLOBULIN RATIO 1.3 (1.0-1.7); MAGNESIUM 2.6 mg/dL (1.8-2.4); TOTAL BILIRUBIN 0.6 mg/dL (0.2-1.0); TOTAL PROTEIN 7.5 g/dL (6.4-8.2)
--- NOTE | 2018-05-01 11:29 | PHYS DOC ---
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 Patient woke up this morning , having shortness of air and wheezing. Patient went to see his lung doctor, got a duoneb treatment in the clinic but continued to have shortness of air with worsen work of breathing so he was sent here for evaluation and treatment. Patient is not on oxygen at home. He denied any chest pain, no cough, no fever. Review of Systems Review of Systems Constitutional: Denies fever or chills [] Eyes: Denies change in visual acuity, redness, or eye pain [] HENT: Denies nasal congestion or sore throat [] Respiratory: positive for shortness of air and wheezing Cardiovascular: No additional information not addressed in HPI [] GI: Denies abdominal pain, nausea, vomiting, bloody stools or diarrhea [] : Denies dysuria or hematuria [] Musculoskeletal: Denies back pain or joint pain [] Integument: Denies rash or skin lesions [] Neurologic: Denies headache, focal weakness or sensory changes [] Endocrine: Denies polyuria or polydipsia [] All other systems were reviewed and found to be within normal limits, except as documented in this note. Current Medications Current Medications Current Medications Medications (Trade) Dose Ordered Sig/Renae Start Time Stop Time Status Last Admin Dose Admin Albuterol Sulfate (Ventolin Neb Soln) 2.5 mg STK-MED ONCE 05/01/18 11:07 05/01/18 11:08 DC Albuterol/ Ipratropium (Duoneb) 3 ml RTQID 05/01/18 12:00 05/02/18 11:59 Epinephrine HCl (Adrenalin) 1 mg STK-MED ONCE 05/01/18 10:52 05/01/18 10:53 DC Methylprednisolone Sodium Succinate (SOLU-Medrol 125MG VIAL) 125 mg 1X ONCE 05/01/18 11:00 05/01/18 11:01 DC 05/01/18 11:00 125 MG Sodium Chloride 1,000 ml @ 75 mls/hr [id number] 05/01/18 12:00 05/02/18 11:59 Allergies Allergies Allergies Coded Allergies Type Severity Reaction Last Updated Verified No Known Drug Allergies 04/21/17 No Physical Exam Physical Exam Constitutional: Well developed, well nourished, in moderate distress, diaphoresis. HENT: Normocephalic, atraumatic, bilateral external ears normal, oropharynx moist, no oral exudates, nose normal. [] Eyes: PERRLA, EOMI, conjunctiva normal, no discharge. [] Neck: Normal range of motion, no tenderness, supple, no stridor. [] Cardiovascular: sinus tachycardia with regular rhythm, no murmur [] Lungs & Thorax: decreased breath sound bilaterally, severe wheezing, tachypnic with accessory muscle involved, retraction, tripoding. Abdomen: Bowel sounds normal, soft, no tenderness, no masses, no pulsatile masses. [] Skin: diaphoresis Back: No tenderness, no CVA tenderness. [] Extremities: No tenderness, no cyanosis, no clubbing, ROM intact, no edema. [] Neurologic: Alert and oriented X 3, normal motor function, normal sensory function, no focal deficits noted. [] Psychologic: appeared very anxious. ] Current Patient Data Vital Signs Vital Signs Date Time Temp Pulse Resp B/P (MAP) Pulse Ox O2 Delivery O2 Flow Rate FiO2 05/01/18 11:38 98 Nasal Cannula 3.0 05/01/18 10:59 98.4 108 16 193/118 (143) 98.4 Lab Values Laboratory Tests Test 05/01/18 10:50 White Blood Count 8.7 x10^3/uL (4.0-11.0) Red Blood Count 5.30 x10^6/uL (4.30-5.70) Hemoglobin 17.9 g/dL (13.0-17.5) H Hematocrit 51.1 % (39.0-53.0) Mean Corpuscular Volume 97 fL (79-100) Mean Corpuscular Hemoglobin 34 pg (25-35) Mean Corpuscular Hemoglobin Concent 35 g/dL (31-37) Red Cell Distribution Width 14.3 % (11.5-14.5) Platelet Count 243 x10^3/uL (140-400) Neutrophils (%) (Auto) 56 % (31-73) Lymphocytes (%) (Auto) 25 % (24-48) Monocytes (%) (Auto) 9 % (0-9) Eosinophils (%) (Auto) 10 % (0-3) H Basophils (%) (Auto) 1 % (0-3) Neutrophils # (Auto) 4.9 x10^3uL (1.8-7.7) Lymphocytes # (Auto) 2.1 x10^3/uL (1.0-4.8) Monocytes # (Auto) 0.8 x10^3/uL (0.0-1.1) Eosinophils # (Auto) 0.9 x10^3/uL (0.0-0.7) H Basophils # (Auto) 0.0 x10^3/uL (0.0-0.2) Sodium Level 144 mmol/L (136-145) Potassium Level 4.2 mmol/L (3.5-5.1) Chloride Level 106 mmol/L (98-107) Carbon Dioxide Level 29 mmol/L (21-32) Anion Gap 9 (6-14) Blood Urea Nitrogen 7 mg/dL (8-26) L Creatinine 0.9 mg/dL (0.7-1.3) Estimated GFR (Cockcroft-Gault) 87.0 BUN/Creatinine Ratio 8 (6-20) Glucose Level 93 mg/dL (70-99) Calcium Level 9.0 mg/dL (8.5-10.1) Magnesium Level 2.6 mg/dL (1.8-2.4) H Total Bilirubin 0.6 mg/dL (0.2-1.0) Aspartate Amino Transferase (AST) 21 U/L (15-37) Alanine Aminotransferase (ALT) 19 U/L (16-63) Alkaline Phosphatase 87 U/L (46-116) Creatine Kinase 70 U/L (39-308) Creatine Kinase MB (Mass) 2.1 ng/mL (0.0-3.6) Creatine Kinase MB Relative Index % (0-4) Troponin I Quantitative < 0.017 ng/mL (0.000-0.055) RZ-[id number]-T-Type Natriuretic Peptide 84 pg/mL (0-124) Total Protein 7.5 g/dL (6.4-8.2) Albumin 4.2 g/dL (3.4-5.0) Albumin/Globulin Ratio 1.3 (1.0-1.7) Laboratory Tests 05/01/18 10:50 Laboratory Tests 05/01/18 10:50 EKG EKG EKG at 1048, heart rate of 103 bpm, sinus tachycardia, no STEMI,.... INCOMPLETE RBBB. Radiology/Procedures Radiology/Procedures [][facility] [address] [place] [address] IMAGING REPORT Signed PATIENT: JAMES LONDON ACCOUNT: [id number] : 1960 LOCATION: ER AGE: 57 SEX: M EXAM STATUS: PRE ER ORD. PHYSICIAN: MAULIK NUNO DO REASON: SOA PROCEDURE: PORTABLE CHEST 1V Portable chest, 05/01/2018: HISTORY: Shortness of breath, asthma, CHF Comparison is made to a study from 09/29/2017. The heart size and pulmonary vascularity are normal. The lungs are clear. There is no evidence of pleural fluid. IMPRESSION: No acute cardiopulmonary abnormality is detected. Electronically signed by: Prakash Chatman MD (05/01/2018 11:11 AM) [facility] DICTATED and SIGNED BY: PRAKASH CHATMAN MD DATE: 05/01/18 1110 Course & Med Decision Making Course & Med Decision Making Pertinent Labs and Imaging studies reviewed. (See chart for details) Patient presented to the ER in respiratory distress. He was put on monitor, oxygen applied. He was given .3 mg epinephrine IM, 125 mg solumedrol iv. He was also given a duoneb treatment, and put on 1 hour continuous neb. His condition was improved but continue to wheez, will admit him to the hospital for further evaluation and treatment, discussed lab result, EKG, chest xray and plan of care with patient and family. Total critical care time: [address] Chung, hospitalist, agreed to admit patient. Dragon Disclaimer Dragon Disclaimer This electronic medical record was generated, in whole or in part, using a voice recognition dictation system. Departure Departure Impression: Primary Impression: Asthma attack Disposition: ADMITTED INPATIENT Admitting Physician: Jacky Chung Condition: IMPROVED Referrals: NO PCP (PCP) MAULIK NUNO DO May 01, 2018 11:29
[2018-05-01 11:35] LABS: CREATINE KINASE 70 U/L (39-308)
[2018-05-01] MEDS: IPRATRPIUM/ALBUTEROL 0.5/2.5MG 3 ML NEBU. NEB SCH ×3 (12:00→19:44)
[2018-05-01 12:45] VITALS: BP 178/99
[2018-05-01] MEDS: IV NORMAL SALINE 1000ML BAG 1,000 ML IV SCH (13:50)
--- NOTE | 2018-05-01 14:30 | HP ---
ADMIT DATE: 05/01/2018 CHIEF COMPLAINT: Shortness of breath and wheezing. HISTORY OF PRESENT ILLNESS: The patient is a pleasant 57-year-old male from [facility]. He presented with shortness of breath and wheezing, he has known asthma. He rates his symptoms at 10/10. It should be noted that he was at Dr. Ramos's office earlier today, they sent him to the ER. When he hit the ER, they gave him IV steroids, IV epinephrine and a 1-hour continuous nebulizer. He is still wheezing quite a bit. I have discussed the case with the ER physician. We are going to admit the patient and consult Dr. Ramos. PAST MEDICAL HISTORY: Asthma. ALLERGIES: None. FAMILY HISTORY: Asthma. SOCIAL HISTORY: He does not drink, smoke or take drugs. He is from [facility]. MEDICATIONS: Reviewed, please refer to the MRAD. REVIEW OF SYSTEMS: GENERAL: No history of weight change, weakness or fevers. SKIN: No bruising, hair changes or rashes. EYES: No blurred, double or loss of vision. NOSE AND THROAT: No history of nosebleeds, hoarseness or sore throat. HEART: No history of palpitations, chest pain or shortness of breath on exertion. LUNGS: He complains of shortness of breath. GASTROINTESTINAL: Denies changes in appetite, nausea, vomiting, diarrhea or constipation. GENITOURINARY: No history of frequency, urgency, hesitancy or nocturia. NEUROLOGIC: Denies history of numbness, tingling, tremor or weakness. PSYCHIATRIC: No history of panic, anxiety or depression. ENDOCRINE: No history of heat or cold intolerance, polyuria or polydipsia. EXTREMITIES: Denies muscle weakness, joint pain, pain on walking or stiffness. PHYSICAL EXAMINATION: VITAL SIGNS: Temperature afebrile, pulse 120, respirations 18, blood pressure 193/118, O2 sat 96% on 3 liters. GENERAL: He is awake, alert. HEART: Normal S1, S2, tachycardic. LUNGS: Coarse throughout with wheezing everywhere. ABDOMEN: Soft. EXTREMITIES: Trace edema. SKIN: No rash. ENDOCRINE: No thyromegaly. LYMPHATICS: No cervical nodes. HEMATOPOIETIC: No bruising. LABORATORY DATA: Hemoglobin 17.9. Electrolytes are normal. Troponin 0. Chest x-ray, negative. ASSESSMENT AND PLAN: [id number] asthma exacerbation with respiratory failure. The patient has been admitted. We will treat with IV Solu-Medrol, frequent DuoNeb, oxygen per nasal cannula. We will try to resume his home meds. Consult Dr. Ramos, cardiac monitoring. PROGNOSIS: Guarded. NIAL Frandy GARZA DO DR: ARIANA/terrance JOB#: [id number] / [id number]
[2018-05-01] MEDS ORDERED: VENTOLIN HFA18 GM INH (14:47)
[2018-05-01] MEDS ORDERED: BUDE10.2 IH (14:48)
[2018-05-01 15:00] VITALS: BP 146/91
[2018-05-01 16:20] VITALS: BP 146/91
[2018-05-01] MEDS: methylPREDNISolone SOD SUCC PF 40 MG/ML VIAL. IV SCH ×2 (16:34→21:12)
[2018-05-01] MEDS ORDERED: ACETAMINOPHEN 500 MG TABLET PO PRN (17:15)
[2018-05-01] MEDS ORDERED: ONDANSETRON ODT 4 MG TAB.RAPDIS. PO PRN (17:15)
[2018-05-01] MEDS ORDERED: ONDANSETRON PF 4 MG/2 ML VIAL. IV PRN (17:15)
[2018-05-01] MEDS ORDERED: guaiFENesin DM 200MG/20MG 10 ML SYRUP PO PRN (17:15)
[2018-05-01] MEDS ORDERED: ACETAMINOPHEN/CODEINE 300/30MG TABLET. PO PRN (17:15)
[2018-05-01] MEDS: METOPROLOL TARTRATE 5 MG/5 ML VIAL. IVP SCH (17:34)
[2018-05-01 19:00] VITALS: BP 125/91
[2018-05-01] MEDS: MONTELUKAST SODIUM 10 MG TABLET. PO SCH (21:11)
[2018-05-01] MEDS: BENZONATATE 100 MG CAPSULE. PO SCH (21:11)
[2018-05-01 22:46] VITALS: BP 119/78
[2018-05-02] VITALS (7 sets, daily range): BP systolic 113–143; BP diastolic 69–91
[2018-05-02] MEDS: IV NORMAL SALINE 1000ML BAG 1,000 ML IV SCH (03:15)
[2018-05-02] MEDS: METOPROLOL TARTRATE 5 MG/5 ML VIAL. IVP SCH ×4 (06:00→18:00)
--- NOTE | 2018-05-02 07:38 | PDOC ---
Provider Note Provider Note [id number] acute resp fail ae of asthma ? phylicia see orders NILO MARTINEZ MD May 02, 2018 07:38
[2018-05-02] MEDS: IPRATRPIUM/ALBUTEROL 0.5/2.5MG 3 ML NEBU. NEB SCH ×4 (08:15→18:16)
[2018-05-02] MEDS: BUDESONIDE 0.5 MG/2 ML NEBU. NEB SCH ×2 (08:17→18:16)
[2018-05-02] MEDS: PANTOPRAZOLE 40 MG TABLET.DR. PO SCH (08:39)
[2018-05-02] MEDS: BENZONATATE 100 MG CAPSULE. PO SCH ×3 (08:39→20:32)
[2018-05-02] MEDS: ENOXAPARIN 40 MG/0.4 ML SYRINGE. SQ SCH (08:40)
--- NOTE | 2018-05-02 08:45 | CONS ---
DATE OF CONSULTATION: 05/02/2018 REASON FOR CONSULTATION: I was asked to see this 57-year-old gentleman for acute respiratory failure. HISTORY OF PRESENT ILLNESS: He is a lifelong nonsmoker. He has been followed by Dr. Ramos for asthma/COPD. He has had shortness of breath for the past 2 days, has had chest tightness and wheezing. He denies cough. He was seen in Dr. Ramos's office, was sent to the emergency room. He did receive nebulizer treatment and steroid. He is on oxygen now. He is usually not on oxygen at home. He feels better. He does snore, has occasional excessive daytime sleepiness, has not had a sleep study. He denies gastroesophageal reflux symptoms. PAST MEDICAL HISTORY: Asthma. SOCIAL HISTORY: He is a lifelong nonsmoker. FAMILY HISTORY: His brother has asthma. ALLERGIES: No known drug allergies. MEDICATIONS: Currently, he is on this single layer, metoprolol, Solu-Medrol 60 mg IV q.i.d., DuoNeb. REVIEW OF SYSTEMS: As mentioned as above, other systems otherwise negative. PHYSICAL EXAMINATION: GENERAL: Overweight gentleman. VITAL SIGNS: His O2 saturation on 3 L of oxygen is 96%, respiratory rate 18, heart rate 95, blood pressure 140/91, temperature 97.7. HEENT: Normocephalic, atraumatic. Pupils equal, round, and reactive to light. He has shallow oropharynx. Nose is clear. NECK: There is no JVD, lymphadenopathy or thyromegaly. CARDIOVASCULAR: Regular rate and rhythm. PMI is nondisplaced. CHEST: Inspection is normal. LUNGS: There are a few end-expiratory wheezing. Percussion is within normal limit. ABDOMEN: Soft and obese. Bowel sounds are good. EXTREMITIES: There is no edema. LYMPHATICS: There is no lymphadenopathy. NEUROLOGIC: Alert and oriented. DATA: I reviewed the following lab data: ABG: pH 7.35, pCO2 of 53, pO2 91 on 32% FiO2. WBC 8.7, hemoglobin 17.9, platelets 243. Sodium 144, potassium 4.2, chloride 106, CO2 29, glucose 93, BUN 7, creatinine 0.9. Troponin less than 0.01. BNP 84. IMPRESSION: 1. Acute respiratory failure secondary to acute exacerbation of asthma. 2. Acute exacerbation of asthma. 3. Snoring and excessive daytime sleepiness, probable obstructive sleep apnea-hypopnea syndrome. PLAN AND RECOMMENDATIONS: 1. Titrate FiO2 to keep O2 saturation 92%. 2. Continue bronchodilator. 3. We will change Solu-Medrol to 40 mg IV every 8 hours. 4. Continue Singulair. 5. Add inhaled corticosteroid. 6. Lovenox for DVT prophylaxis. 7. Protonix for stress ulcer prophylaxis. 8. Monitor respiratory status very closely. 9. I have discussed obstructive sleep apnea-hypopnea syndrome, the importance of diagnosis and treatment; if untreated, increased cardiovascular and OPERATION SPECIALIST morbidity or mortality. I do recommend a sleep study as an outpatient. Thank you very much for allowing me to participate in care of this very nice gentleman. The findings and recommendations were discussed with him and his nurse who speaks Czech and did help me with the interview. NILO MARTINEZ M.D. DR: Cruzito JOB#: [id number] / [id number]
--- NOTE | 2018-05-02 12:42 | PDOC ---
PROGRESS NOTES Chief Complaint Chief Complaint CC: Acute asthmatic exacerbation SOB, wheezing Asthma Echo (05/01) -sinus rhythm -non-spec. ST/T changes History of Present Illness History of Present Illness Pt. seen and examined Pt. alert and oriented; affect good VSS DW nursing; pt. has wheezing episodes 1x/month; also discussed inhaled steroids , albuterol and Methylin tx Recommended sleep study Pt. notes bloating and GERD-like symptoms; Ordered protonics 40 mg qd for possible reflux Vitals Vitals Vital Signs Date Time Temp Pulse Resp B/P (MAP) Pulse Ox O2 Delivery O2 Flow Rate FiO2 05/02/18 11:23 97 Nasal Cannula 3.0 05/02/18 11:00 98.1 100 20 129/83 (98) 98.1 Physical Exam Lungs: Clear, Other Review of Systems Review of Systems C/O SOB C/O of abd. bloating Assessment and Plan Assessmemt and Plan CC: (1) Asthma attack Assessment: Acute asthmatic exacerbation SOB, wheezing Asthma Echo (05/01) -sinus rhythm -non-spec. ST/T changes Plan: Begin protonics (40 mg qd) Monitor for GERD-like symptoms Monitor labs PT/OT Fu w/ pulm, appreciate input Home meds Continue current diet Comment Review of Relevant I have reviewed the following items ryan (where applicable) has been applied. Labs Laboratory Tests Test 05/01/18 10:47 05/01/18 10:50 O2 Saturation 96 % (92-99) Arterial Blood pH 7.35 (7.35-7.45) Arterial Blood pCO2 at Patient Temp 53 mmHg (35-46) Arterial Blood pO2 at Patient Temp 91 mmHg (75-108) Arterial Blood HCO3 29 mmol/L (21-28) Arterial Blood Base Excess 2 mmol/L (-3-3) Oxyhemoglobin 95.9 % Methemoglobin 0.4 % (0.0-1.9) Carbon Monoxide, Quantitative 0.1 % (0.0-1.9) FiO2 32.0 White Blood Count 8.7 x10^3/uL (4.0-11.0) Red Blood Count 5.30 x10^6/uL (4.30-5.70) Hemoglobin 17.9 g/dL (13.0-17.5) Hematocrit 51.1 % (39.0-53.0) Mean Corpuscular Volume 97 fL (79-100) Mean Corpuscular Hemoglobin 34 pg (25-35) Mean Corpuscular Hemoglobin Concent 35 g/dL (31-37) Red Cell Distribution Width 14.3 % (11.5-14.5) Platelet Count 243 x10^3/uL (140-400) Neutrophils (%) (Auto) 56 % (31-73) Lymphocytes (%) (Auto) 25 % (24-48) Monocytes (%) (Auto) 9 % (0-9) Eosinophils (%) (Auto) 10 % (0-3) Basophils (%) (Auto) 1 % (0-3) Neutrophils # (Auto) 4.9 x10^3uL (1.8-7.7) Lymphocytes # (Auto) 2.1 x10^3/uL (1.0-4.8) Monocytes # (Auto) 0.8 x10^3/uL (0.0-1.1) Eosinophils # (Auto) 0.9 x10^3/uL (0.0-0.7) Basophils # (Auto) 0.0 x10^3/uL (0.0-0.2) Sodium Level 144 mmol/L (136-145) Potassium Level 4.2 mmol/L (3.5-5.1) Chloride Level 106 mmol/L (98-107) Carbon Dioxide Level 29 mmol/L (21-32) Anion Gap 9 (6-14) Blood Urea Nitrogen 7 mg/dL (8-26) Creatinine 0.9 mg/dL (0.7-1.3) Estimated GFR (Cockcroft-Gault) 87.0 BUN/Creatinine Ratio 8 (6-20) Glucose Level 93 mg/dL (70-99) Calcium Level 9.0 mg/dL (8.5-10.1) Magnesium Level 2.6 mg/dL (1.8-2.4) Total Bilirubin 0.6 mg/dL (0.2-1.0) Aspartate Amino Transf (AST/SGOT) 21 U/L (15-37) Alanine Aminotransferase (ALT/SGPT) 19 U/L (16-63) Alkaline Phosphatase 87 U/L (46-116) Creatine Kinase 70 U/L (39-308) Creatine Kinase MB (Mass) 2.1 ng/mL (0.0-3.6) Creatine Kinase MB Relative Index % (0-4) Troponin I Quantitative < 0.017 ng/mL (0.000-0.055) QC-Bwc-O-Type Natriuretic Peptide 84 pg/mL (0-124) Total Protein 7.5 g/dL (6.4-8.2) Albumin 4.2 g/dL (3.4-5.0) Albumin/Globulin Ratio 1.3 (1.0-1.7) Medications Current Medications Albuterol/ Ipratropium (Duoneb) 3 ml 1X ONCE NEB Last administered on at 11:01; Start 05/01/18 at 11:00; Stop 05/01/18 at 11:01; Status DC Methylprednisolone Sodium Succinate (SOLU-Medrol 125MG VIAL) 125 mg 1X ONCE IV Last administered on 05/01/18at 11:00; Start 05/01/18 at 11:00; Stop 05/01/18 at 11:01; Status DC Epinephrine HCl (Adrenalin) 0.3 mg 1X ONCE SQ Last administered on 05/01/18at 10:53; Start 05/01/18 at 11:00; Stop 05/01/18 at 11:01; Status DC Epinephrine HCl (Adrenalin) 1 mg STK-MED ONCE .ROUTE ; Start 05/01/18 at 10:52; Stop 05/01/18 at 10:53; Status DC Albuterol Sulfate (Ventolin Neb Soln) 2.5 mg STK-MED ONCE .ROUTE ; Start at 11:07; Stop 05/01/18 at 11:08; Status DC Sodium Chloride 1,000 ml @ 75 mls/hr [id number] IV Last administered on at 03:15; Start 05/01/18 at 12:00; Stop 05/02/18 at 11:59; Status DC Albuterol/ Ipratropium (Duoneb) 3 ml RTQID NEB Last administered on 05/02/18at 11:22; Start 05/01/18 at 12:00; Stop 05/02/18 at 11:59; Status DC Methylprednisolone Sodium Succinate (SOLU-Medrol 40MG VIAL) 60 mg QID IV Last administered on 05/01/18at 21:12; Start 05/01/18 at 17:00; Stop 05/02/18 at 07:41 ; Status DC Montelukast Sodium (Singulair) 10 mg QHS PO Last administered on 05/01/18at 21: 11; Start 05/01/18 at 21:00 Metoprolol Tartrate (Lopressor Vial) 5 mg Q6HRS IVP Last administered on at 06:00; Start 05/01/18 at 18:00 Guaifenesin (Robitussin Dm) 10 ml PRN Q6HRS PRN PO COUGH 1ST CHOICE; Start at 17:15 Acetaminophen (Tylenol) 500 mg PRN Q6HRS PRN PO MILD PAIN / TEMP; Start at 17:15 Acetaminophen/ Codeine Phosphate (Tylenol #3) 1 tab PRN Q6HRS PRN PO MODEARTE - SEVERE PAIN; Start 05/01/18 at 17:15 Ondansetron HCl (Zofran) 4 mg PRN Q6HRS PRN IV NAUSEA/VOMITING 1ST CHOICE; Start 05/01/18 at 17:15 Ondansetron HCl (Zofran Odt) 4 mg PRN Q6HRS PRN PO NAUSEA/VOMITING 1ST CHOICE; Start 05/01/18 at 17:15 Benzonatate (Tessalon Perle) 100 mg [id number] PO Last administered on 05/02/18at 08 :39; Start 05/01/18 at 21:00 Methylprednisolone Sodium Succinate (SOLU-Medrol 40MG VIAL) 60 mg Q8HRS IV ; Start 05/02/18 at 14:00 Budesonide (Pulmicort) 0.5 mg RTBID NEB Last administered on 05/02/18at 08:17; Start 05/02/18 at 08:00 Enoxaparin Sodium (Lovenox 40mg Syringe) 40 mg Q24H SQ Last administered on at 08:40; Start 05/02/18 at 09:00 Pantoprazole Sodium (Protonix) 40 mg DAILYAC PO Last administered on 05/02/18at 08:39; Start 05/02/18 at 08:00 Active Scripts Active Montelukast Sodium Tablet (Montelukast Sodium) 10 Mg Tablet 1 Tab PO DAILY Proair Hfa Inhaler (Albuterol Sulfate) 8.5 Gm Hfa.aer.ad 1 Puff INH PRN Q6HRS PRN Reported Symbicort 160-4.5 Mcg Inhaler (Budesonide/Formoterol Fumarate) 10.2 Gm Hfa.aer.ad 2 Puff IH BID Ventolin Hfa Inhaler (Albuterol Sulfate) 18 Gm Hfa.aer.ad 2 Puff INH Q4HRS PRN Vitals/I & O Vital Sign - Last 24 Hours 05/01/18 05/01/18 05/01/18 05/01/18 12:45 13:00 15:00 15:22 Temp 98.2 97.5 98.2 97.5 Pulse 133 118 Resp 18 18 B/P (MAP) 178/99 (125) 146/91 (109) Pulse Ox 90 97 96 O2 Delivery Nasal Cannula Nasal Cannula Nasal Cannula Nasal Cannula O2 Flow Rate 3.0 3.0 3.0 3.0 05/01/18 05/01/18 05/01/18 05/01/18 16:20 17:34 19:00 19:44 Temp 97.5 97.9 97.5 97.9 Pulse 118 118 103 Resp 18 18 B/P (MAP) 146/91 (109) 146/91 125/91 (102) Pulse Ox 97 96 96 O2 Delivery Nasal Cannula Nasal Cannula Nasal Cannula O2 Flow Rate 3.0 3.0 3.0 05/01/18 05/01/18 05/02/18 05/02/18 20:09 22:46 00:00 03:00 Temp 97.9 97.7 97.9 97.7 Pulse 106 106 95 Resp 18 18 B/P (MAP) 119/78 (92) 119/78 142/91 (108) Pulse Ox 96 98 O2 Delivery Nasal Cannula Nasal Cannula Nasal Cannula O2 Flow Rate 3.0 3.0 3.0 05/02/18 05/02/18 05/02/18 05/02/18 06:00 07:00 08:18 11:00 Temp 97.9 98.1 97.9 98.1 Pulse 95 90 100 Resp 20 20 B/P (MAP) 142/91 143/90 (107) 129/83 (98) Pulse Ox 96 96 97 O2 Delivery Nasal Cannula Nasal Cannula Nasal Cannula O2 Flow Rate 3.0 3.0 3.0 05/02/18 11:23 Pulse Ox 97 O2 Delivery Nasal Cannula O2 Flow Rate 3.0 Intake and Output 05/01/18 05/01/18 05/02/18 15:00 23:00 07:00 Intake Total 420 ml 1380 ml Output Total 700 ml 1300 ml Balance -280 ml 80 ml LIYAH GARZA III DO May 02, 2018 12:42
[2018-05-02] MEDS: methylPREDNISolone SOD SUCC PF 40 MG/ML VIAL. IV SCH ×2 (17:13→21:24)
[2018-05-02] MEDS: MONTELUKAST SODIUM 10 MG TABLET. PO SCH (20:32)
[2018-05-03 03:00] VITALS: BP 120/80
[2018-05-03] MEDS: methylPREDNISolone SOD SUCC PF 40 MG/ML VIAL. IV SCH ×3 (05:26→21:47)
[2018-05-03] MEDS: METOPROLOL TARTRATE 5 MG/5 ML VIAL. IVP SCH ×4 (06:00→18:00)
[2018-05-03 06:29] LABS: BASO % 0 % (0-3); EOS % 0 % (0-3); HEMOGLOBIN 15.2 g/dL (13.0-17.5); LYMPH # 0.9 x10^3/uL (1.0-4.8); LYMPH % 6 % (24-48); MEAN CORPUSCULAR HEMOGLOBIN 32 pg (25-35); MEAN CORPUSCULAR HGB CONC 34 g/dL (31-37); MEAN CORPUSCULAR VOLUME 96 fL (79-100); MONO # 0.3 x10^3/uL (0.0-1.1); MONO % 3 % (0-9); NEUT # 12.8 x10^3uL (1.8-7.7); NEUT % 91 % (31-73); PLATELET COUNT 221 x10^3/uL (140-400); RED BLOOD COUNT 4.68 x10^6/uL (4.30-5.70); RED CELL DISTRIBUTION WIDTH 14.2 % (11.5-14.5); WHITE BLOOD COUNT 14.1 x10^3/uL (4.0-11.0)
[2018-05-03 06:39] LABS: CALCIUM 8.7 mg/dL (8.5-10.1); CREATININE 0.9 mg/dL (0.7-1.3); POTASSIUM 3.9 mmol/L (3.5-5.1)
[2018-05-03 07:00] VITALS: BP 125/83
--- NOTE | 2018-05-03 07:02 | PDOC ---
PULMONARY PROGRESS NOTES Subjective sob better, has more cough, sputum, no pain Vitals Vital Signs Date Time Temp Pulse Resp B/P (MAP) Pulse Ox O2 Delivery O2 Flow Rate FiO2 05/03/18 03:00 97.6 96 20 120/80 (93) 97 Nasal Cannula 3.0 97.6 ROS: No Nausea, No Chest Pain HEENT: Other (nc at perrl nose throat clear) Lungs: Wheezing Cardiovascular: S1, S2 Abdomen: Soft, Non-tender, Other Neuro Exam: Alert, Oriented Extremities: No Edema Skin: Warm Labs Laboratory Tests Test 05/01/18 10:47 05/01/18 10:50 05/03/18 04:35 O2 Saturation 96 % (92-99) Arterial Blood pH 7.35 (7.35-7.45) Arterial Blood pCO2 at Patient Temp 53 mmHg (35-46) Arterial Blood pO2 at Patient Temp 91 mmHg (75-108) Arterial Blood HCO3 29 mmol/L (21-28) Arterial Blood Base Excess 2 mmol/L (-3-3) Oxyhemoglobin 95.9 % Methemoglobin 0.4 % (0.0-1.9) Carbon Monoxide, Quantitative 0.1 % (0.0-1.9) FiO2 32.0 White Blood Count 8.7 x10^3/uL (4.0-11.0) 14.1 x10^3/uL (4.0-11.0) Red Blood Count 5.30 x10^6/uL (4.30-5.70) 4.68 x10^6/uL (4.30-5.70) Hemoglobin 17.9 g/dL (13.0-17.5) 15.2 g/dL (13.0-17.5) Hematocrit 51.1 % (39.0-53.0) 45.0 % (39.0-53.0) Mean Corpuscular Volume 97 fL (79-100) 96 fL (79-100) Mean Corpuscular Hemoglobin 34 pg (25-35) 32 pg (25-35) Mean Corpuscular Hemoglobin Concent 35 g/dL (31-37) 34 g/dL (31-37) Red Cell Distribution Width 14.3 % (11.5-14.5) 14.2 % (11.5-14.5) Platelet Count 243 x10^3/uL (140-400) 221 x10^3/uL (140-400) Neutrophils (%) (Auto) 56 % (31-73) 91 % (31-73) Lymphocytes (%) (Auto) 25 % (24-48) 6 % (24-48) Monocytes (%) (Auto) 9 % (0-9) 3 % (0-9) Eosinophils (%) (Auto) 10 % (0-3) 0 % (0-3) Basophils (%) (Auto) 1 % (0-3) 0 % (0-3) Neutrophils # (Auto) 4.9 x10^3uL (1.8-7.7) 12.8 x10^3uL (1.8-7.7) Lymphocytes # (Auto) 2.1 x10^3/uL (1.0-4.8) 0.9 x10^3/uL (1.0-4.8) Monocytes # (Auto) 0.8 x10^3/uL (0.0-1.1) 0.3 x10^3/uL (0.0-1.1) Eosinophils # (Auto) 0.9 x10^3/uL (0.0-0.7) 0.0 x10^3/uL (0.0-0.7) Basophils # (Auto) 0.0 x10^3/uL (0.0-0.2) 0.0 x10^3/uL (0.0-0.2) Sodium Level 144 mmol/L (136-145) 141 mmol/L (136-145) Potassium Level 4.2 mmol/L (3.5-5.1) 3.9 mmol/L (3.5-5.1) Chloride Level 106 mmol/L (98-107) 103 mmol/L (98-107) Carbon Dioxide Level 29 mmol/L (21-32) 28 mmol/L (21-32) Anion Gap 9 (6-14) 10 (6-14) Blood Urea Nitrogen 7 mg/dL (8-26) 17 mg/dL (8-26) Creatinine 0.9 mg/dL (0.7-1.3) 0.9 mg/dL (0.7-1.3) Estimated GFR (Cockcroft-Gault) 87.0 87.0 BUN/Creatinine Ratio 8 (6-20) Glucose Level 93 mg/dL (70-99) 172 mg/dL (70-99) Calcium Level 9.0 mg/dL (8.5-10.1) 8.7 mg/dL (8.5-10.1) Magnesium Level 2.6 mg/dL (1.8-2.4) Total Bilirubin 0.6 mg/dL (0.2-1.0) Aspartate Amino Transf (AST/SGOT) 21 U/L (15-37) Alanine Aminotransferase (ALT/SGPT) 19 U/L (16-63) Alkaline Phosphatase 87 U/L (46-116) Creatine Kinase 70 U/L (39-308) Creatine Kinase MB (Mass) 2.1 ng/mL (0.0-3.6) Creatine Kinase MB Relative Index % (0-4) Troponin I Quantitative < 0.017 ng/mL (0.000-0.055) TR-Sxr-T-Type Natriuretic Peptide 84 pg/mL (0-124) Total Protein 7.5 g/dL (6.4-8.2) Albumin 4.2 g/dL (3.4-5.0) Albumin/Globulin Ratio 1.3 (1.0-1.7) Laboratory Tests Test 05/03/18 04:35 White Blood Count 14.1 x10^3/uL (4.0-11.0) Red Blood Count 4.68 x10^6/uL (4.30-5.70) Hemoglobin 15.2 g/dL (13.0-17.5) Hematocrit 45.0 % (39.0-53.0) Mean Corpuscular Volume 96 fL (79-100) Mean Corpuscular Hemoglobin 32 pg (25-35) Mean Corpuscular Hemoglobin Concent 34 g/dL (31-37) Red Cell Distribution Width 14.2 % (11.5-14.5) Platelet Count 221 x10^3/uL (140-400) Neutrophils (%) (Auto) 91 % (31-73) Lymphocytes (%) (Auto) 6 % (24-48) Monocytes (%) (Auto) 3 % (0-9) Eosinophils (%) (Auto) 0 % (0-3) Basophils (%) (Auto) 0 % (0-3) Neutrophils # (Auto) 12.8 x10^3uL (1.8-7.7) Lymphocytes # (Auto) 0.9 x10^3/uL (1.0-4.8) Monocytes # (Auto) 0.3 x10^3/uL (0.0-1.1) Eosinophils # (Auto) 0.0 x10^3/uL (0.0-0.7) Basophils # (Auto) 0.0 x10^3/uL (0.0-0.2) Sodium Level 141 mmol/L (136-145) Potassium Level 3.9 mmol/L (3.5-5.1) Chloride Level 103 mmol/L (98-107) Carbon Dioxide Level 28 mmol/L (21-32) Anion Gap 10 (6-14) Blood Urea Nitrogen 17 mg/dL (8-26) Creatinine 0.9 mg/dL (0.7-1.3) Estimated GFR (Cockcroft-Gault) 87.0 Glucose Level 172 mg/dL (70-99) Calcium Level 8.7 mg/dL (8.5-10.1) Medications Active Scripts Medications Dose Route/Sig Max Daily Dose Days Date Category Symbicort 160-4.5 Mcg Inhaler (Budesonide/Formoterol Fumarate) 10.2 Gm Hfa.aer.ad 2 Puff IH BID 05/01/18 Reported Ventolin Hfa Inhaler (Albuterol Sulfate) 18 Gm Hfa.aer.ad 2 Puff INH Q4HRS PRN 05/01/18 Reported Montelukast Sodium Tablet (Montelukast Sodium) 10 Mg Tablet 1 Tab PO DAILY 04/23/17 Rx Proair Hfa Inhaler (Albuterol Sulfate) 8.5 Gm Hfa.aer.ad 1 Puff INH PRN Q6HRS PRN 04/23/17 Rx Impression . IMPRESSION: 1. Acute respiratory failure secondary to acute exacerbation of asthma and acute bronchitis. 2. Acute exacerbation of asthma. 3. Snoring and excessive daytime sleepiness, probable obstructive sleep apnea-hypopnea syndrome. 4. acute bronchitis Plan . PLAN AND RECOMMENDATIONS: 1. Titrate FiO2 to keep O2 saturation 92%. 2. Continue bronchodilator. 3. We will change Solu-Medrol to 40 mg IV every 8 hours. 4. Continue Singulair. 5. inhaled corticosteroid. 6. Lovenox for DVT prophylaxis. 7. Protonix for stress ulcer prophylaxis. 8. Monitor respiratory status very closely. 9. I have discussed obstructive sleep apnea-hypopnea syndrome, the importance of diagnosis and treatment; if untreated, increased cardiovascular and [employer] morbidity or mortality. I do recommend a sleep study as an outpatient. 10. add rocephin, has more cough and sputum, leukocytosis discussed w rn, pt NILO MARTINEZ MD May 03, 2018 07:02
[2018-05-03] MEDS: BUDESONIDE 0.5 MG/2 ML NEBU. NEB SCH ×2 (07:47→19:29)
[2018-05-03] MEDS: IPRATRPIUM/ALBUTEROL 0.5/2.5MG 3 ML NEBU. NEB SCH ×4 (07:47→19:29)
[2018-05-03] MEDS: BENZONATATE 100 MG CAPSULE. PO SCH ×3 (09:52→20:47)
[2018-05-03] MEDS: ENOXAPARIN 40 MG/0.4 ML SYRINGE. SQ SCH (09:53)
[2018-05-03] MEDS: PANTOPRAZOLE 40 MG TABLET.DR. PO SCH (09:54)
[2018-05-03] MEDS: cefTRIAXone IV Push 1 GM VIAL. IVP SCH (09:54)
[2018-05-03 10:12] LABS: % ATYL 1 % (0-0); % BANDS 5 % (0-9); % LYMPHS 5 % (24-48); % MONOS 3 % (0-10); % SEGS 86 % (35-66); PLT ESTIMATE ADEQUATE (ADEQUATE)
[2018-05-03 11:00] VITALS: BP 138/88
--- NOTE | 2018-05-03 13:37 | PDOC ---
PROGRESS NOTES Chief Complaint Chief Complaint CC: Acute asthmatic exacerbation SOB, wheezing Asthma Echo (05/01) -sinus rhythm -non-spec. ST/T changes History of Present Illness History of Present Illness Pt. seen and examined Pt. alert and oriented; affect good VSS DW nursing; pt. has wheezing episodes 1x/month; also discussed inhaled steroids , albuterol and Methylin tx Discussed starting an expectorant Pt. notes bloating and GERD-like symptoms; Ordered protonics 40 mg qd for possible reflux yesterday Vitals Vitals Vital Signs Date Time Temp Pulse Resp B/P (MAP) Pulse Ox O2 Delivery O2 Flow Rate FiO2 05/03/18 11:24 96 Nasal Cannula 3.0 05/03/18 11:00 97.9 98 18 138/88 (105) 97.9 Physical Exam General: Alert, Oriented X3 Heart: Regular rate, Normal S1 Lungs: Wheezing Abdomen: Normal bowel sounds, Soft Extremities: No clubbing, No cyanosis Skin: No rashes, No breakdown Labs LABS Laboratory Tests Test 05/03/18 04:35 White Blood Count 14.1 x10^3/uL (4.0-11.0) Red Blood Count 4.68 x10^6/uL (4.30-5.70) Hemoglobin 15.2 g/dL (13.0-17.5) Hematocrit 45.0 % (39.0-53.0) Mean Corpuscular Volume 96 fL (79-100) Mean Corpuscular Hemoglobin 32 pg (25-35) Mean Corpuscular Hemoglobin Concent 34 g/dL (31-37) Red Cell Distribution Width 14.2 % (11.5-14.5) Platelet Count 221 x10^3/uL (140-400) Neutrophils (%) (Auto) 91 % (31-73) Lymphocytes (%) (Auto) 6 % (24-48) Monocytes (%) (Auto) 3 % (0-9) Eosinophils (%) (Auto) 0 % (0-3) Basophils (%) (Auto) 0 % (0-3) Neutrophils # (Auto) 12.8 x10^3uL (1.8-7.7) Lymphocytes # (Auto) 0.9 x10^3/uL (1.0-4.8) Monocytes # (Auto) 0.3 x10^3/uL (0.0-1.1) Eosinophils # (Auto) 0.0 x10^3/uL (0.0-0.7) Basophils # (Auto) 0.0 x10^3/uL (0.0-0.2) Segmented Neutrophils % 86 % (35-66) Band Neutrophils % 5 % (0-9) Lymphocytes % 5 % (24-48) Atypical Lymphocytes % (Manual) 1 % (0-0) Monocytes % 3 % (0-10) Platelet Estimate Adequate (ADEQUATE) Sodium Level 141 mmol/L (136-145) Potassium Level 3.9 mmol/L (3.5-5.1) Chloride Level 103 mmol/L (98-107) Carbon Dioxide Level 28 mmol/L (21-32) Anion Gap 10 (6-14) Blood Urea Nitrogen 17 mg/dL (8-26) Creatinine 0.9 mg/dL (0.7-1.3) Estimated GFR (Cockcroft-Gault) 87.0 Glucose Level 172 mg/dL (70-99) Calcium Level 8.7 mg/dL (8.5-10.1) Review of Systems Review of Systems co soa co hunger Assessment and Plan Assessmemt and Plan Problems Medical Problems: (1) Asthma attack Status: Acute Acute asthmatic exacerbation SOB, wheezing Asthma Echo (05/01) -sinus rhythm -non-spec. ST/T changes Plan IV steroids Nebs Singulair Guafenessin Protonix Comment Review of Relevant I have reviewed the following items ryan (where applicable) has been applied. Labs Laboratory Tests Test 05/03/18 04:35 White Blood Count 14.1 x10^3/uL (4.0-11.0) Red Blood Count 4.68 x10^6/uL (4.30-5.70) Hemoglobin 15.2 g/dL (13.0-17.5) Hematocrit 45.0 % (39.0-53.0) Mean Corpuscular Volume 96 fL (79-100) Mean Corpuscular Hemoglobin 32 pg (25-35) Mean Corpuscular Hemoglobin Concent 34 g/dL (31-37) Red Cell Distribution Width 14.2 % (11.5-14.5) Platelet Count 221 x10^3/uL (140-400) Neutrophils (%) (Auto) 91 % (31-73) Lymphocytes (%) (Auto) 6 % (24-48) Monocytes (%) (Auto) 3 % (0-9) Eosinophils (%) (Auto) 0 % (0-3) Basophils (%) (Auto) 0 % (0-3) Neutrophils # (Auto) 12.8 x10^3uL (1.8-7.7) Lymphocytes # (Auto) 0.9 x10^3/uL (1.0-4.8) Monocytes # (Auto) 0.3 x10^3/uL (0.0-1.1) Eosinophils # (Auto) 0.0 x10^3/uL (0.0-0.7) Basophils # (Auto) 0.0 x10^3/uL (0.0-0.2) Segmented Neutrophils % 86 % (35-66) Band Neutrophils % 5 % (0-9) Lymphocytes % 5 % (24-48) Atypical Lymphocytes % (Manual) 1 % (0-0) Monocytes % 3 % (0-10) Platelet Estimate Adequate (ADEQUATE) Sodium Level 141 mmol/L (136-145) Potassium Level 3.9 mmol/L (3.5-5.1) Chloride Level 103 mmol/L (98-107) Carbon Dioxide Level 28 mmol/L (21-32) Anion Gap 10 (6-14) Blood Urea Nitrogen 17 mg/dL (8-26) Creatinine 0.9 mg/dL (0.7-1.3) Estimated GFR (Cockcroft-Gault) 87.0 Glucose Level 172 mg/dL (70-99) Calcium Level 8.7 mg/dL (8.5-10.1) Laboratory Tests Test 05/03/18 04:35 White Blood Count 14.1 x10^3/uL (4.0-11.0) Red Blood Count 4.68 x10^6/uL (4.30-5.70) Hemoglobin 15.2 g/dL (13.0-17.5) Hematocrit 45.0 % (39.0-53.0) Mean Corpuscular Volume 96 fL (79-100) Mean Corpuscular Hemoglobin 32 pg (25-35) Mean Corpuscular Hemoglobin Concent 34 g/dL (31-37) Red Cell Distribution Width 14.2 % (11.5-14.5) Platelet Count 221 x10^3/uL (140-400) Neutrophils (%) (Auto) 91 % (31-73) Lymphocytes (%) (Auto) 6 % (24-48) Monocytes (%) (Auto) 3 % (0-9) Eosinophils (%) (Auto) 0 % (0-3) Basophils (%) (Auto) 0 % (0-3) Neutrophils # (Auto) 12.8 x10^3uL (1.8-7.7) Lymphocytes # (Auto) 0.9 x10^3/uL (1.0-4.8) Monocytes # (Auto) 0.3 x10^3/uL (0.0-1.1) Eosinophils # (Auto) 0.0 x10^3/uL (0.0-0.7) Basophils # (Auto) 0.0 x10^3/uL (0.0-0.2) Segmented Neutrophils % 86 % (35-66) Band Neutrophils % 5 % (0-9) Lymphocytes % 5 % (24-48) Atypical Lymphocytes % (Manual) 1 % (0-0) Monocytes % 3 % (0-10) Platelet Estimate Adequate (ADEQUATE) Sodium Level 141 mmol/L (136-145) Potassium Level 3.9 mmol/L (3.5-5.1) Chloride Level 103 mmol/L (98-107) Carbon Dioxide Level 28 mmol/L (21-32) Anion Gap 10 (6-14) Blood Urea Nitrogen 17 mg/dL (8-26) Creatinine 0.9 mg/dL (0.7-1.3) Estimated GFR (Cockcroft-Gault) 87.0 Glucose Level 172 mg/dL (70-99) Calcium Level 8.7 mg/dL (8.5-10.1) Medications Current Medications Albuterol/ Ipratropium (Duoneb) 3 ml 1X ONCE NEB Last administered on at 11:01; Start 05/01/18 at 11:00; Stop 05/01/18 at 11:01; Status DC Methylprednisolone Sodium Succinate (SOLU-Medrol 125MG VIAL) 125 mg 1X ONCE IV Last administered on 05/01/18at 11:00; Start 05/01/18 at 11:00; Stop 05/01/18 at 11:01; Status DC Epinephrine HCl (Adrenalin) 0.3 mg 1X ONCE SQ Last administered on 05/01/18at 10:53; Start 05/01/18 at 11:00; Stop 05/01/18 at 11:01; Status DC Epinephrine HCl (Adrenalin) 1 mg STK-MED ONCE .ROUTE ; Start 05/01/18 at 10:52; Stop 05/01/18 at 10:53; Status DC Albuterol Sulfate (Ventolin Neb Soln) 2.5 mg STK-MED ONCE .ROUTE ; Start at 11:07; Stop 05/01/18 at 11:08; Status DC Sodium Chloride 1,000 ml @ 75 mls/hr [id number] IV Last administered on at 03:15; Start 05/01/18 at 12:00; Stop 05/02/18 at 11:59; Status DC Albuterol/ Ipratropium (Duoneb) 3 ml RTQID NEB Last administered on 05/02/18at 15:49; Start 05/01/18 at 12:00; Stop 05/02/18 at 11:59; Status DC Methylprednisolone Sodium Succinate (SOLU-Medrol 40MG VIAL) 60 mg QID IV Last administered on 05/01/18at 21:12; Start 05/01/18 at 17:00; Stop 05/02/18 at 07:41 ; Status DC Montelukast Sodium (Singulair) 10 mg QHS PO Last administered on 05/02/18at 20: 32; Start 05/01/18 at 21:00 Metoprolol Tartrate (Lopressor Vial) 5 mg Q6HRS IVP Last administered on at 06:00; Start 05/01/18 at 18:00 Guaifenesin (Robitussin Dm) 10 ml PRN Q6HRS PRN PO COUGH 1ST CHOICE; Start at 17:15 Acetaminophen (Tylenol) 500 mg PRN Q6HRS PRN PO MILD PAIN / TEMP; Start at 17:15 Acetaminophen/ Codeine Phosphate (Tylenol #3) 1 tab PRN Q6HRS PRN PO MODEARTE - SEVERE PAIN; Start 05/01/18 at 17:15 Ondansetron HCl (Zofran) 4 mg PRN Q6HRS PRN IV NAUSEA/VOMITING 1ST CHOICE; Start 05/01/18 at 17:15 Ondansetron HCl (Zofran Odt) 4 mg PRN Q6HRS PRN PO NAUSEA/VOMITING 1ST CHOICE; Start 05/01/18 at 17:15 Benzonatate (Tessalon Perle) 100 mg [id number] PO Last administered on 05/03/18at 09 :52; Start 05/01/18 at 21:00 Methylprednisolone Sodium Succinate (SOLU-Medrol 40MG VIAL) 60 mg Q8HRS IV Last administered on 05/03/18at 05:26; Start 05/02/18 at 14:00; Stop 05/03/18 at 07:03; Status DC Budesonide (Pulmicort) 0.5 mg RTBID NEB Last administered on 05/03/18at 07:47; Start 05/02/18 at 08:00 Enoxaparin Sodium (Lovenox 40mg Syringe) 40 mg Q24H SQ Last administered on at 09:53; Start 05/02/18 at 09:00 Pantoprazole Sodium (Protonix) 40 mg DAILYAC PO Last administered on 05/03/18at 09:54; Start 05/02/18 at 08:00 Albuterol/ Ipratropium (Duoneb) 3 ml RTQID NEB Last administered on 05/03/18at 11:24; Start 05/02/18 at 20:00 Methylprednisolone Sodium Succinate (SOLU-Medrol 40MG VIAL) 40 mg Q8HRS IV ; Start 05/03/18 at 14:00 Ceftriaxone Sodium 1 gm/ Dextrose 50 ml @ 100 mls/hr Q24H IV ; Start 05/03/18 at 07:15; Status UNV Ceftriaxone Sodium (Rocephin) 1 gm Q24H IVP Last administered on 05/03/18at 09: 54; Start 05/03/18 at 07:30 Lactobacillus Rhamnosus (Culturelle) 1 cap BID PO ; Start 05/03/18 at 21:00 Guaifenesin (Mucinex) 1,200 mg BID PO ; Start 05/03/18 at 21:00; Status UNV Active Scripts Active Montelukast Sodium Tablet (Montelukast Sodium) 10 Mg Tablet 1 Tab PO DAILY Proair Hfa Inhaler (Albuterol Sulfate) 8.5 Gm Hfa.aer.ad 1 Puff INH PRN Q6HRS PRN Reported Symbicort 160-4.5 Mcg Inhaler (Budesonide/Formoterol Fumarate) 10.2 Gm Hfa.aer.ad 2 Puff IH BID Ventolin Hfa Inhaler (Albuterol Sulfate) 18 Gm Hfa.aer.ad 2 Puff INH Q4HRS PRN Vitals/I & O Vital Sign - Last 24 Hours 05/02/18 05/02/18 05/02/18 05/02/18 15:00 15:50 18:00 18:17 Temp 98.1 98.1 Pulse 105 105 Resp 20 B/P (MAP) 116/74 (88) 116/74 Pulse Ox 96 97 96 O2 Delivery Nasal Cannula Nasal Cannula Nasal Cannula O2 Flow Rate 3.0 3.0 3.0 05/02/18 05/02/18 05/02/18 05/03/18 19:00 20:00 23:00 03:00 Temp 98.2 98.1 97.6 98.2 98.1 97.6 Pulse 87 109 96 Resp 20 20 20 B/P (MAP) 113/83 (93) 116/77 (90) 120/80 (93) Pulse Ox 98 96 97 O2 Delivery Nasal Cannula Nasal Cannula Nasal Cannula Nasal Cannula O2 Flow Rate 3.0 3.0 3.0 3.0 05/03/18 05/03/18 05/03/18 05/03/18 07:00 07:48 11:00 11:24 Temp 98.1 97.9 98.1 97.9 Pulse 102 98 Resp 18 18 B/P (MAP) 125/83 (97) 138/88 (105) Pulse Ox 94 96 96 96 O2 Delivery Nasal Cannula Nasal Cannula Nasal Cannula Nasal Cannula O2 Flow Rate 3.0 3.0 3.0 3.0 Intake and Output 05/02/18 05/02/18 05/03/18 15:00 23:00 07:00 Intake Total 360 ml 180 ml 500 ml Balance 360 ml 180 ml 500 ml KAYLANIAL K III DO May 03, 2018 13:37
[2018-05-03 15:00] VITALS: BP 116/76
[2018-05-03 19:00] VITALS: BP 123/83
[2018-05-03] MEDS: LACTOBACILLUS RHAMNOSUS GG 1 CAPSULE. PO SCH (20:47)
[2018-05-03] MEDS: MONTELUKAST SODIUM 10 MG TABLET. PO SCH (20:48)
[2018-05-03 23:00] VITALS: BP 116/76
[2018-05-04 02:59] VITALS: BP 118/85
[2018-05-04] MEDS: METOPROLOL TARTRATE 5 MG/5 ML VIAL. IVP SCH ×2 (06:00)
[2018-05-04] MEDS: methylPREDNISolone SOD SUCC PF 40 MG/ML VIAL. IV SCH (06:04)
[2018-05-04 07:00] VITALS: BP 142/99
[2018-05-04 07:32] LABS: BASO % 0 % (0-3); EOS % 0 % (0-3); HEMOGLOBIN 15.5 g/dL (13.0-17.5); LYMPH % 7 % (24-48); MEAN CORPUSCULAR HEMOGLOBIN 33 pg (25-35); MEAN CORPUSCULAR HGB CONC 35 g/dL (31-37); MEAN CORPUSCULAR VOLUME 96 fL (79-100); MONO # 0.6 x10^3/uL (0.0-1.1); MONO % 4 % (0-9); NEUT # 12.7 x10^3uL (1.8-7.7); NEUT % 89 % (31-73); PLATELET COUNT 206 x10^3/uL (140-400); RED BLOOD COUNT 4.67 x10^6/uL (4.30-5.70); WHITE BLOOD COUNT 14.4 x10^3/uL (4.0-11.0)
[2018-05-04] MEDS: cefTRIAXone IV Push 1 GM VIAL. IVP SCH (07:34)
[2018-05-04] MEDS: PANTOPRAZOLE 40 MG TABLET.DR. PO SCH (07:34)
[2018-05-04 07:58] LABS: CREATININE 0.9 mg/dL (0.7-1.3)
[2018-05-04] MEDS: BUDESONIDE 0.5 MG/2 ML NEBU. NEB SCH ×2 (08:40→19:25)
[2018-05-04] MEDS: IPRATRPIUM/ALBUTEROL 0.5/2.5MG 3 ML NEBU. NEB SCH ×4 (08:40→19:24)
[2018-05-04] MEDS: BENZONATATE 100 MG CAPSULE. PO SCH ×3 (09:23→20:39)
[2018-05-04] MEDS: LACTOBACILLUS RHAMNOSUS GG 1 CAPSULE. PO SCH ×2 (09:23→20:39)
[2018-05-04] MEDS: ENOXAPARIN 40 MG/0.4 ML SYRINGE. SQ SCH (09:24)
[2018-05-04] MEDS ORDERED: ALBUTEROL SULFATE 2.5 MG/3 ML NEBU. NEB PRN (10:45)
[2018-05-04 11:00] VITALS: BP 138/76
--- NOTE | 2018-05-04 11:29 | PDOC ---
PULMONARY PROGRESS NOTES Subjective sob better, Vitals Vital Signs Date Time Temp Pulse Resp B/P (MAP) Pulse Ox O2 Delivery O2 Flow Rate FiO2 05/04/18 08:44 96 Nasal Cannula 3.0 05/04/18 07:00 97.5 82 18 142/99 (113) 97.5 ROS: No Nausea, No Chest Pain General: Alert, No acute distress HEENT: Other Lungs: Clear Cardiovascular: S1, S2 Abdomen: Soft, Non-tender Neuro Exam: Alert, Oriented Extremities: No Edema Skin: Warm Labs Laboratory Tests Test 05/03/18 04:35 05/04/18 06:35 White Blood Count 14.1 x10^3/uL (4.0-11.0) 14.4 x10^3/uL (4.0-11.0) Red Blood Count 4.68 x10^6/uL (4.30-5.70) 4.67 x10^6/uL (4.30-5.70) Hemoglobin 15.2 g/dL (13.0-17.5) 15.5 g/dL (13.0-17.5) Hematocrit 45.0 % (39.0-53.0) 45.0 % (39.0-53.0) Mean Corpuscular Volume 96 fL (79-100) 96 fL (79-100) Mean Corpuscular Hemoglobin 32 pg (25-35) 33 pg (25-35) Mean Corpuscular Hemoglobin Concent 34 g/dL (31-37) 35 g/dL (31-37) Red Cell Distribution Width 14.2 % (11.5-14.5) 14.0 % (11.5-14.5) Platelet Count 221 x10^3/uL (140-400) 206 x10^3/uL (140-400) Neutrophils (%) (Auto) 91 % (31-73) 89 % (31-73) Lymphocytes (%) (Auto) 6 % (24-48) 7 % (24-48) Monocytes (%) (Auto) 3 % (0-9) 4 % (0-9) Eosinophils (%) (Auto) 0 % (0-3) 0 % (0-3) Basophils (%) (Auto) 0 % (0-3) 0 % (0-3) Neutrophils # (Auto) 12.8 x10^3uL (1.8-7.7) 12.7 x10^3uL (1.8-7.7) Lymphocytes # (Auto) 0.9 x10^3/uL (1.0-4.8) 1.0 x10^3/uL (1.0-4.8) Monocytes # (Auto) 0.3 x10^3/uL (0.0-1.1) 0.6 x10^3/uL (0.0-1.1) Eosinophils # (Auto) 0.0 x10^3/uL (0.0-0.7) 0.0 x10^3/uL (0.0-0.7) Basophils # (Auto) 0.0 x10^3/uL (0.0-0.2) 0.0 x10^3/uL (0.0-0.2) Segmented Neutrophils % 86 % (35-66) Band Neutrophils % 5 % (0-9) Lymphocytes % 5 % (24-48) Atypical Lymphocytes % (Manual) 1 % (0-0) Monocytes % 3 % (0-10) Platelet Estimate Adequate (ADEQUATE) Sodium Level 141 mmol/L (136-145) 139 mmol/L (136-145) Potassium Level 3.9 mmol/L (3.5-5.1) 4.0 mmol/L (3.5-5.1) Chloride Level 103 mmol/L (98-107) 103 mmol/L (98-107) Carbon Dioxide Level 28 mmol/L (21-32) 27 mmol/L (21-32) Anion Gap 10 (6-14) 9 (6-14) Blood Urea Nitrogen 17 mg/dL (8-26) 14 mg/dL (8-26) Creatinine 0.9 mg/dL (0.7-1.3) 0.9 mg/dL (0.7-1.3) Estimated GFR (Cockcroft-Gault) 87.0 87.0 Glucose Level 172 mg/dL (70-99) 161 mg/dL (70-99) Calcium Level 8.7 mg/dL (8.5-10.1) 8.0 mg/dL (8.5-10.1) Laboratory Tests Test 05/04/18 06:35 White Blood Count 14.4 x10^3/uL (4.0-11.0) Red Blood Count 4.67 x10^6/uL (4.30-5.70) Hemoglobin 15.5 g/dL (13.0-17.5) Hematocrit 45.0 % (39.0-53.0) Mean Corpuscular Volume 96 fL (79-100) Mean Corpuscular Hemoglobin 33 pg (25-35) Mean Corpuscular Hemoglobin Concent 35 g/dL (31-37) Red Cell Distribution Width 14.0 % (11.5-14.5) Platelet Count 206 x10^3/uL (140-400) Neutrophils (%) (Auto) 89 % (31-73) Lymphocytes (%) (Auto) 7 % (24-48) Monocytes (%) (Auto) 4 % (0-9) Eosinophils (%) (Auto) 0 % (0-3) Basophils (%) (Auto) 0 % (0-3) Neutrophils # (Auto) 12.7 x10^3uL (1.8-7.7) Lymphocytes # (Auto) 1.0 x10^3/uL (1.0-4.8) Monocytes # (Auto) 0.6 x10^3/uL (0.0-1.1) Eosinophils # (Auto) 0.0 x10^3/uL (0.0-0.7) Basophils # (Auto) 0.0 x10^3/uL (0.0-0.2) Sodium Level 139 mmol/L (136-145) Potassium Level 4.0 mmol/L (3.5-5.1) Chloride Level 103 mmol/L (98-107) Carbon Dioxide Level 27 mmol/L (21-32) Anion Gap 9 (6-14) Blood Urea Nitrogen 14 mg/dL (8-26) Creatinine 0.9 mg/dL (0.7-1.3) Estimated GFR (Cockcroft-Gault) 87.0 Glucose Level 161 mg/dL (70-99) Calcium Level 8.0 mg/dL (8.5-10.1) Medications Active Scripts Medications Dose Route/Sig Max Daily Dose Days Date Category Symbicort 160-4.5 Mcg Inhaler (Budesonide/Formoterol Fumarate) 10.2 Gm Hfa.aer.ad 2 Puff IH BID 05/01/18 Reported Ventolin Hfa Inhaler (Albuterol Sulfate) 18 Gm Hfa.aer.ad 2 Puff INH Q4HRS PRN 05/01/18 Reported Montelukast Sodium Tablet (Montelukast Sodium) 10 Mg Tablet 1 Tab PO DAILY 04/23/17 Rx Proair Hfa Inhaler (Albuterol Sulfate) 8.5 Gm Hfa.aer.ad 1 Puff INH PRN Q6HRS PRN 04/23/17 Rx Impression . IMPRESSION: 1. Acute respiratory failure secondary to acute exacerbation of asthma and acute bronchitis. 2. Acute exacerbation of asthma. 3. Snoring and excessive daytime sleepiness, probable obstructive sleep apnea-hypopnea syndrome. 4. acute bronchitis Plan . 1. wean off oxygen.keep O2 saturation 92%. 2. Continue bronchodilator. 3. change to PO steroids 4. Continue Singulair. 5. inhaled corticosteroid. 6. Lovenox for DVT prophylaxis. 7. Protonix for stress ulcer prophylaxis. 8. sleep study as an outpatient. 9. can change to Po abx possible dc home today discussed w rn, pt BHAVIK SÁNCHEZ MD May 04, 2018 11:29
--- NOTE | 2018-05-04 12:12 | PDOC ---
PROGRESS NOTES Chief Complaint Chief Complaint CC: Acute asthmatic exacerbation acute hypoxic resp failure plan: fu with pulm change solumedrol to prednison 40mg daily dc metoprolol iv told nurse to taper O2, otherwise need 6min walk tmr cont duoneb, add albuterol prn History of Present Illness History of Present Illness Pt. seen and examined Pt. alert and oriented; affect good VSS [facility] nursing; pt. has wheezing episodes 1x/month; also discussed inhaled steroids , albuterol and Methylin tx feels sob better bl lungs still tight and mild wheezing on o2 2L, no home o2 no smoke Vitals Vitals Vital Signs Date Time Temp Pulse Resp B/P (MAP) Pulse Ox O2 Delivery O2 Flow Rate FiO2 05/04/18 11:00 97.7 87 20 138/76 (96) 96 Nasal Cannula 2.0 97.7 Physical Exam General: Alert, Oriented X3 Heart: Regular rate, Normal S1 Lungs: Other (bl lungs tightness and mild wheezing) Abdomen: Normal bowel sounds, Soft Extremities: No clubbing, No cyanosis Skin: No rashes, No breakdown Labs LABS Laboratory Tests Test 05/04/18 06:35 White Blood Count 14.4 x10^3/uL (4.0-11.0) Red Blood Count 4.67 x10^6/uL (4.30-5.70) Hemoglobin 15.5 g/dL (13.0-17.5) Hematocrit 45.0 % (39.0-53.0) Mean Corpuscular Volume 96 fL (79-100) Mean Corpuscular Hemoglobin 33 pg (25-35) Mean Corpuscular Hemoglobin Concent 35 g/dL (31-37) Red Cell Distribution Width 14.0 % (11.5-14.5) Platelet Count 206 x10^3/uL (140-400) Neutrophils (%) (Auto) 89 % (31-73) Lymphocytes (%) (Auto) 7 % (24-48) Monocytes (%) (Auto) 4 % (0-9) Eosinophils (%) (Auto) 0 % (0-3) Basophils (%) (Auto) 0 % (0-3) Neutrophils # (Auto) 12.7 x10^3uL (1.8-7.7) Lymphocytes # (Auto) 1.0 x10^3/uL (1.0-4.8) Monocytes # (Auto) 0.6 x10^3/uL (0.0-1.1) Eosinophils # (Auto) 0.0 x10^3/uL (0.0-0.7) Basophils # (Auto) 0.0 x10^3/uL (0.0-0.2) Sodium Level 139 mmol/L (136-145) Potassium Level 4.0 mmol/L (3.5-5.1) Chloride Level 103 mmol/L (98-107) Carbon Dioxide Level 27 mmol/L (21-32) Anion Gap 9 (6-14) Blood Urea Nitrogen 14 mg/dL (8-26) Creatinine 0.9 mg/dL (0.7-1.3) Estimated GFR (Cockcroft-Gault) 87.0 Glucose Level 161 mg/dL (70-99) Calcium Level 8.0 mg/dL (8.5-10.1) Assessment and Plan Assessmemt and Plan Problems Medical Problems: (1) Asthma attack Status: Acute Comment Review of Relevant I have reviewed the following items ryan (where applicable) has been applied. Labs Laboratory Tests Test 05/03/18 04:35 05/04/18 06:35 White Blood Count 14.1 x10^3/uL (4.0-11.0) 14.4 x10^3/uL (4.0-11.0) Red Blood Count 4.68 x10^6/uL (4.30-5.70) 4.67 x10^6/uL (4.30-5.70) Hemoglobin 15.2 g/dL (13.0-17.5) 15.5 g/dL (13.0-17.5) Hematocrit 45.0 % (39.0-53.0) 45.0 % (39.0-53.0) Mean Corpuscular Volume 96 fL (79-100) 96 fL (79-100) Mean Corpuscular Hemoglobin 32 pg (25-35) 33 pg (25-35) Mean Corpuscular Hemoglobin Concent 34 g/dL (31-37) 35 g/dL (31-37) Red Cell Distribution Width 14.2 % (11.5-14.5) 14.0 % (11.5-14.5) Platelet Count 221 x10^3/uL (140-400) 206 x10^3/uL (140-400) Neutrophils (%) (Auto) 91 % (31-73) 89 % (31-73) Lymphocytes (%) (Auto) 6 % (24-48) 7 % (24-48) Monocytes (%) (Auto) 3 % (0-9) 4 % (0-9) Eosinophils (%) (Auto) 0 % (0-3) 0 % (0-3) Basophils (%) (Auto) 0 % (0-3) 0 % (0-3) Neutrophils # (Auto) 12.8 x10^3uL (1.8-7.7) 12.7 x10^3uL (1.8-7.7) Lymphocytes # (Auto) 0.9 x10^3/uL (1.0-4.8) 1.0 x10^3/uL (1.0-4.8) Monocytes # (Auto) 0.3 x10^3/uL (0.0-1.1) 0.6 x10^3/uL (0.0-1.1) Eosinophils # (Auto) 0.0 x10^3/uL (0.0-0.7) 0.0 x10^3/uL (0.0-0.7) Basophils # (Auto) 0.0 x10^3/uL (0.0-0.2) 0.0 x10^3/uL (0.0-0.2) Segmented Neutrophils % 86 % (35-66) Band Neutrophils % 5 % (0-9) Lymphocytes % 5 % (24-48) Atypical Lymphocytes % (Manual) 1 % (0-0) Monocytes % 3 % (0-10) Platelet Estimate Adequate (ADEQUATE) Sodium Level 141 mmol/L (136-145) 139 mmol/L (136-145) Potassium Level 3.9 mmol/L (3.5-5.1) 4.0 mmol/L (3.5-5.1) Chloride Level 103 mmol/L (98-107) 103 mmol/L (98-107) Carbon Dioxide Level 28 mmol/L (21-32) 27 mmol/L (21-32) Anion Gap 10 (6-14) 9 (6-14) Blood Urea Nitrogen 17 mg/dL (8-26) 14 mg/dL (8-26) Creatinine 0.9 mg/dL (0.7-1.3) 0.9 mg/dL (0.7-1.3) Estimated GFR (Cockcroft-Gault) 87.0 87.0 Glucose Level 172 mg/dL (70-99) 161 mg/dL (70-99) Calcium Level 8.7 mg/dL (8.5-10.1) 8.0 mg/dL (8.5-10.1) Laboratory Tests Test 05/04/18 06:35 White Blood Count 14.4 x10^3/uL (4.0-11.0) Red Blood Count 4.67 x10^6/uL (4.30-5.70) Hemoglobin 15.5 g/dL (13.0-17.5) Hematocrit 45.0 % (39.0-53.0) Mean Corpuscular Volume 96 fL (79-100) Mean Corpuscular Hemoglobin 33 pg (25-35) Mean Corpuscular Hemoglobin Concent 35 g/dL (31-37) Red Cell Distribution Width 14.0 % (11.5-14.5) Platelet Count 206 x10^3/uL (140-400) Neutrophils (%) (Auto) 89 % (31-73) Lymphocytes (%) (Auto) 7 % (24-48) Monocytes (%) (Auto) 4 % (0-9) Eosinophils (%) (Auto) 0 % (0-3) Basophils (%) (Auto) 0 % (0-3) Neutrophils # (Auto) 12.7 x10^3uL (1.8-7.7) Lymphocytes # (Auto) 1.0 x10^3/uL (1.0-4.8) Monocytes # (Auto) 0.6 x10^3/uL (0.0-1.1) Eosinophils # (Auto) 0.0 x10^3/uL (0.0-0.7) Basophils # (Auto) 0.0 x10^3/uL (0.0-0.2) Sodium Level 139 mmol/L (136-145) Potassium Level 4.0 mmol/L (3.5-5.1) Chloride Level 103 mmol/L (98-107) Carbon Dioxide Level 27 mmol/L (21-32) Anion Gap 9 (6-14) Blood Urea Nitrogen 14 mg/dL (8-26) Creatinine 0.9 mg/dL (0.7-1.3) Estimated GFR (Cockcroft-Gault) 87.0 Glucose Level 161 mg/dL (70-99) Calcium Level 8.0 mg/dL (8.5-10.1) Medications Current Medications Albuterol/ Ipratropium (Duoneb) 3 ml 1X ONCE NEB Last administered on at 11:01; Start 05/01/18 at 11:00; Stop 05/01/18 at 11:01; Status DC Methylprednisolone Sodium Succinate (SOLU-Medrol 125MG VIAL) 125 mg 1X ONCE IV Last administered on 05/01/18at 11:00; Start 05/01/18 at 11:00; Stop 05/01/18 at 11:01; Status DC Epinephrine HCl (Adrenalin) 0.3 mg 1X ONCE SQ Last administered on 05/01/18at 10:53; Start 05/01/18 at 11:00; Stop 05/01/18 at 11:01; Status DC Epinephrine HCl (Adrenalin) 1 mg STK-MED ONCE .ROUTE ; Start 05/01/18 at 10:52; Stop 05/01/18 at 10:53; Status DC Albuterol Sulfate (Ventolin Neb Soln) 2.5 mg STK-MED ONCE .ROUTE ; Start at 11:07; Stop 05/01/18 at 11:08; Status DC Sodium Chloride 1,000 ml @ 75 mls/hr [id number] IV Last administered on at 03:15; Start 05/01/18 at 12:00; Stop 05/02/18 at 11:59; Status DC Albuterol/ Ipratropium (Duoneb) 3 ml RTQID NEB Last administered on 05/02/18at 15:49; Start 05/01/18 at 12:00; Stop 05/02/18 at 11:59; Status DC Methylprednisolone Sodium Succinate (SOLU-Medrol 40MG VIAL) 60 mg QID IV Last administered on 05/01/18at 21:12; Start 05/01/18 at 17:00; Stop 05/02/18 at 07:41 ; Status DC Montelukast Sodium (Singulair) 10 mg QHS PO Last administered on 05/03/18at 20: 48; Start 05/01/18 at 21:00 Metoprolol Tartrate (Lopressor Vial) 5 mg Q6HRS IVP Last administered on at 06:00; Start 05/01/18 at 18:00; Stop 05/04/18 at 11:54; Status DC Guaifenesin (Robitussin Dm) 10 ml PRN Q6HRS PRN PO COUGH 1ST CHOICE; Start at 17:15; Stop 05/03/18 at 13:42; Status DC Acetaminophen (Tylenol) 500 mg PRN Q6HRS PRN PO MILD PAIN / TEMP; Start at 17:15 Acetaminophen/ Codeine Phosphate (Tylenol #3) 1 tab PRN Q6HRS PRN PO MODEARTE - SEVERE PAIN; Start 05/01/18 at 17:15 Ondansetron HCl (Zofran) 4 mg PRN Q6HRS PRN IV NAUSEA/VOMITING 1ST CHOICE; Start 05/01/18 at 17:15 Ondansetron HCl (Zofran Odt) 4 mg PRN Q6HRS PRN PO NAUSEA/VOMITING 1ST CHOICE; Start 05/01/18 at 17:15 Benzonatate (Tessalon Perle) 100 mg [id number] PO Last administered on 05/04/18at 09 :23; Start 05/01/18 at 21:00 Methylprednisolone Sodium Succinate (SOLU-Medrol 40MG VIAL) 60 mg Q8HRS IV Last administered on 05/03/18at 05:26; Start 05/02/18 at 14:00; Stop 05/03/18 at 07:03; Status DC Budesonide (Pulmicort) 0.5 mg RTBID NEB Last administered on 05/04/18at 08:40; Start 05/02/18 at 08:00 Enoxaparin Sodium (Lovenox 40mg Syringe) 40 mg Q24H SQ Last administered on at 09:24; Start 05/02/18 at 09:00 Pantoprazole Sodium (Protonix) 40 mg DAILYAC PO Last administered on 05/04/18at 07:34; Start 05/02/18 at 08:00 Albuterol/ Ipratropium (Duoneb) 3 ml RTQID NEB Last administered on 05/04/18at 12:08; Start 05/02/18 at 20:00 Methylprednisolone Sodium Succinate (SOLU-Medrol 40MG VIAL) 40 mg Q8HRS IV Last administered on 05/04/18at 06:04; Start 05/03/18 at 14:00; Stop 05/04/18 at 10:45; Status DC Ceftriaxone Sodium 1 gm/ Dextrose 50 ml @ 100 mls/hr Q24H IV ; Start 05/03/18 at 07:15; Status UNV Ceftriaxone Sodium (Rocephin) 1 gm Q24H IVP Last administered on 05/04/18at 07: 34; Start 05/03/18 at 07:30 Lactobacillus Rhamnosus (Culturelle) 1 cap BID PO Last administered on at 09:23; Start 05/03/18 at 21:00 Guaifenesin (Mucinex) 1,200 mg BID PO Last administered on 05/04/18at 09:23; Start 05/03/18 at 14:00 Methylprednisolone Sodium Succinate (SOLU-Medrol 40MG VIAL) 40 mg BID IV ; Start 05/04/18 at 21:00; Stop 05/04/18 at 21:00; Status DC Albuterol Sulfate (Ventolin Neb Soln) 2.5 mg PRN Q4HRS PRN NEB SHORTNESS OF BREATH; Start 05/04/18 at 10:45 Prednisone (Prednisone) 40 mg DAILY PO ; Start 05/05/18 at 09:00 Active Scripts Active Montelukast Sodium Tablet (Montelukast Sodium) 10 Mg Tablet 1 Tab PO DAILY Proair Hfa Inhaler (Albuterol Sulfate) 8.5 Gm Hfa.aer.ad 1 Puff INH PRN Q6HRS PRN Reported Symbicort 160-4.5 Mcg Inhaler (Budesonide/Formoterol Fumarate) 10.2 Gm Hfa.aer.ad 2 Puff IH BID Ventolin Hfa Inhaler (Albuterol Sulfate) 18 Gm Hfa.aer.ad 2 Puff INH Q4HRS PRN Vitals/I & O Vital Sign - Last 24 Hours 05/03/18 05/03/18 05/03/18 05/03/18 15:00 15:46 19:00 19:29 Temp 97.8 98.9 97.8 98.9 Pulse 98 94 Resp 18 18 B/P (MAP) 116/76 (89) 123/83 (96) Pulse Ox 96 97 98 97 O2 Delivery Nasal Cannula Nasal Cannula Nasal Cannula Nasal Cannula O2 Flow Rate 3.0 3.0 2.0 3.0 05/03/18 05/03/18 05/04/18 05/04/18 20:00 23:00 00:00 02:59 Temp 98.3 97.6 98.3 97.6 Pulse 103 93 93 Resp 18 18 B/P (MAP) 116/76 (89) 119/80 118/85 (96) Pulse Ox 96 98 O2 Delivery Nasal Cannula Nasal Cannula Room Air O2 Flow Rate 2.0 2.0 05/04/18 05/04/18 05/04/18 05/04/18 06:00 07:00 08:44 11:00 Temp 97.5 97.7 97.5 97.7 Pulse 90 82 87 Resp 18 20 B/P (MAP) 127/88 142/99 (113) 138/76 (96) Pulse Ox 96 96 96 O2 Delivery Nasal Cannula Nasal Cannula Nasal Cannula O2 Flow Rate 2.0 3.0 2.0 Intake and Output 05/03/18 05/03/18 05/04/18 15:00 23:00 07:00 Intake Total 1000 ml 300 ml Balance 1000 ml 300 ml HAMLET LUCIA MD May 04, 2018 12:11
[2018-05-04 15:00] VITALS: BP 140/77
[2018-05-04 19:00] VITALS: BP 119/83
[2018-05-04] MEDS: MONTELUKAST SODIUM 10 MG TABLET. PO SCH (20:39)
[2018-05-04] MEDS ORDERED: methylPREDNISolone SOD SUCC PF 40 MG/ML VIAL. IV SCH (21:00)
[2018-05-04 23:00] VITALS: BP 126/80
[2018-05-05 03:00] VITALS: BP 137/91
[2018-05-05 05:40] LABS: BASO % 0 % (0-3); EOS # 0.1 x10^3/uL (0.0-0.7); EOS % 1 % (0-3); HEMATOCRIT 44.6 % (39.0-53.0); HEMOGLOBIN 15.5 g/dL (13.0-17.5); LYMPH % 19 % (24-48); MEAN CORPUSCULAR HEMOGLOBIN 34 pg (25-35); MEAN CORPUSCULAR HGB CONC 35 g/dL (31-37); MEAN CORPUSCULAR VOLUME 97 fL (79-100); MONO % 9 % (0-9); NEUT # 7.4 x10^3uL (1.8-7.7); NEUT % 71 % (31-73); PLATELET COUNT 209 x10^3/uL (140-400); RED BLOOD COUNT 4.62 x10^6/uL (4.30-5.70); RED CELL DISTRIBUTION WIDTH 14.2 % (11.5-14.5); WHITE BLOOD COUNT 10.5 x10^3/uL (4.0-11.0)
[2018-05-05 05:58] LABS: CALCIUM 8.3 mg/dL (8.5-10.1); CREATININE 0.9 mg/dL (0.7-1.3); POTASSIUM 3.5 mmol/L (3.5-5.1)
[2018-05-05 07:00] VITALS: BP 132/92
[2018-05-05] MEDS: BUDESONIDE 0.5 MG/2 ML NEBU. NEB SCH (08:44)
[2018-05-05] MEDS: IPRATRPIUM/ALBUTEROL 0.5/2.5MG 3 ML NEBU. NEB SCH ×3 (08:44→16:07)
[2018-05-05] MEDS: ENOXAPARIN 40 MG/0.4 ML SYRINGE. SQ SCH (08:55)
[2018-05-05] MEDS: LACTOBACILLUS RHAMNOSUS GG 1 CAPSULE. PO SCH (08:55)
[2018-05-05] MEDS: BENZONATATE 100 MG CAPSULE. PO SCH ×2 (08:55→14:19)
[2018-05-05] MEDS ORDERED: predniSONE 20 MG TABLET PO SCH (09:00)
[2018-05-05] MEDS ORDERED: CEFPODOXIME PROXETIL 100 MG TABLET. PO SCH (09:00)
[2018-05-05] MEDS: PANTOPRAZOLE 40 MG TABLET.DR. PO SCH (09:04)
--- NOTE | 2018-05-05 10:09 | PDOC ---
PROGRESS NOTES Chief Complaint Chief Complaint CC: Acute asthmatic exacerbation acute hypoxic resp failure plan: fu with pulm prednisonE 40mg daily dc metoprolol iv told nurse to taper O2, otherwise need 6min walk tmr cont duoneb, add albuterol prn D/W DR Adan home today History of Present Illness History of Present Illness Pt. seen and examined Pt. alert and oriented; affect good VSS [facility] nursing; pt. has wheezing episodes 1x/month; also discussed inhaled steroids , albuterol and Methylin tx feels sob better bl lungs still tight and mild wheezing on o2 2L, no home o2 no smoke Vitals Vitals Vital Signs Date Time Temp Pulse Resp B/P (MAP) Pulse Ox O2 Delivery O2 Flow Rate FiO2 05/05/18 08:45 96 Room Air 05/05/18 07:00 97.9 80 18 132/92 (105) 97.9 05/04/18 19:00 2.0 Physical Exam Physical Exam is on room air General: Alert, Oriented X3, Cooperative, No acute distress Heart: Regular rate, Normal S1, Normal S2 Lungs: Clear, Other (bl lungs tightness and mild wheezing) Abdomen: Normal bowel sounds, Soft Extremities: No clubbing, No cyanosis Skin: No rashes, No breakdown Labs LABS Laboratory Tests Test 05/05/18 04:05 White Blood Count 10.5 x10^3/uL (4.0-11.0) Red Blood Count 4.62 x10^6/uL (4.30-5.70) Hemoglobin 15.5 g/dL (13.0-17.5) Hematocrit 44.6 % (39.0-53.0) Mean Corpuscular Volume 97 fL (79-100) Mean Corpuscular Hemoglobin 34 pg (25-35) Mean Corpuscular Hemoglobin Concent 35 g/dL (31-37) Red Cell Distribution Width 14.2 % (11.5-14.5) Platelet Count 209 x10^3/uL (140-400) Neutrophils (%) (Auto) 71 % (31-73) Lymphocytes (%) (Auto) 19 % (24-48) Monocytes (%) (Auto) 9 % (0-9) Eosinophils (%) (Auto) 1 % (0-3) Basophils (%) (Auto) 0 % (0-3) Neutrophils # (Auto) 7.4 x10^3uL (1.8-7.7) Lymphocytes # (Auto) 2.0 x10^3/uL (1.0-4.8) Monocytes # (Auto) 1.0 x10^3/uL (0.0-1.1) Eosinophils # (Auto) 0.1 x10^3/uL (0.0-0.7) Basophils # (Auto) 0.0 x10^3/uL (0.0-0.2) Sodium Level 140 mmol/L (136-145) Potassium Level 3.5 mmol/L (3.5-5.1) Chloride Level 102 mmol/L (98-107) Carbon Dioxide Level 30 mmol/L (21-32) Anion Gap 8 (6-14) Blood Urea Nitrogen 18 mg/dL (8-26) Creatinine 0.9 mg/dL (0.7-1.3) Estimated GFR (Cockcroft-Gault) 87.0 Glucose Level 110 mg/dL (70-99) Calcium Level 8.3 mg/dL (8.5-10.1) Assessment and Plan Assessmemt and Plan Problems Medical Problems: (1) Asthma attack Status: Acute Comment Review of Relevant I have reviewed the following items ryan (where applicable) has been applied. Labs Laboratory Tests Test 05/04/18 06:35 05/05/18 04:05 White Blood Count 14.4 x10^3/uL (4.0-11.0) 10.5 x10^3/uL (4.0-11.0) Red Blood Count 4.67 x10^6/uL (4.30-5.70) 4.62 x10^6/uL (4.30-5.70) Hemoglobin 15.5 g/dL (13.0-17.5) 15.5 g/dL (13.0-17.5) Hematocrit 45.0 % (39.0-53.0) 44.6 % (39.0-53.0) Mean Corpuscular Volume 96 fL (79-100) 97 fL (79-100) Mean Corpuscular Hemoglobin 33 pg (25-35) 34 pg (25-35) Mean Corpuscular Hemoglobin Concent 35 g/dL (31-37) 35 g/dL (31-37) Red Cell Distribution Width 14.0 % (11.5-14.5) 14.2 % (11.5-14.5) Platelet Count 206 x10^3/uL (140-400) 209 x10^3/uL (140-400) Neutrophils (%) (Auto) 89 % (31-73) 71 % (31-73) Lymphocytes (%) (Auto) 7 % (24-48) 19 % (24-48) Monocytes (%) (Auto) 4 % (0-9) 9 % (0-9) Eosinophils (%) (Auto) 0 % (0-3) 1 % (0-3) Basophils (%) (Auto) 0 % (0-3) 0 % (0-3) Neutrophils # (Auto) 12.7 x10^3uL (1.8-7.7) 7.4 x10^3uL (1.8-7.7) Lymphocytes # (Auto) 1.0 x10^3/uL (1.0-4.8) 2.0 x10^3/uL (1.0-4.8) Monocytes # (Auto) 0.6 x10^3/uL (0.0-1.1) 1.0 x10^3/uL (0.0-1.1) Eosinophils # (Auto) 0.0 x10^3/uL (0.0-0.7) 0.1 x10^3/uL (0.0-0.7) Basophils # (Auto) 0.0 x10^3/uL (0.0-0.2) 0.0 x10^3/uL (0.0-0.2) Sodium Level 139 mmol/L (136-145) 140 mmol/L (136-145) Potassium Level 4.0 mmol/L (3.5-5.1) 3.5 mmol/L (3.5-5.1) Chloride Level 103 mmol/L (98-107) 102 mmol/L (98-107) Carbon Dioxide Level 27 mmol/L (21-32) 30 mmol/L (21-32) Anion Gap 9 (6-14) 8 (6-14) Blood Urea Nitrogen 14 mg/dL (8-26) 18 mg/dL (8-26) Creatinine 0.9 mg/dL (0.7-1.3) 0.9 mg/dL (0.7-1.3) Estimated GFR (Cockcroft-Gault) 87.0 87.0 Glucose Level 161 mg/dL (70-99) 110 mg/dL (70-99) Calcium Level 8.0 mg/dL (8.5-10.1) 8.3 mg/dL (8.5-10.1) Laboratory Tests Test 05/05/18 04:05 White Blood Count 10.5 x10^3/uL (4.0-11.0) Red Blood Count 4.62 x10^6/uL (4.30-5.70) Hemoglobin 15.5 g/dL (13.0-17.5) Hematocrit 44.6 % (39.0-53.0) Mean Corpuscular Volume 97 fL (79-100) Mean Corpuscular Hemoglobin 34 pg (25-35) Mean Corpuscular Hemoglobin Concent 35 g/dL (31-37) Red Cell Distribution Width 14.2 % (11.5-14.5) Platelet Count 209 x10^3/uL (140-400) Neutrophils (%) (Auto) 71 % (31-73) Lymphocytes (%) (Auto) 19 % (24-48) Monocytes (%) (Auto) 9 % (0-9) Eosinophils (%) (Auto) 1 % (0-3) Basophils (%) (Auto) 0 % (0-3) Neutrophils # (Auto) 7.4 x10^3uL (1.8-7.7) Lymphocytes # (Auto) 2.0 x10^3/uL (1.0-4.8) Monocytes # (Auto) 1.0 x10^3/uL (0.0-1.1) Eosinophils # (Auto) 0.1 x10^3/uL (0.0-0.7) Basophils # (Auto) 0.0 x10^3/uL (0.0-0.2) Sodium Level 140 mmol/L (136-145) Potassium Level 3.5 mmol/L (3.5-5.1) Chloride Level 102 mmol/L (98-107) Carbon Dioxide Level 30 mmol/L (21-32) Anion Gap 8 (6-14) Blood Urea Nitrogen 18 mg/dL (8-26) Creatinine 0.9 mg/dL (0.7-1.3) Estimated GFR (Cockcroft-Gault) 87.0 Glucose Level 110 mg/dL (70-99) Calcium Level 8.3 mg/dL (8.5-10.1) Medications Current Medications Albuterol/ Ipratropium (Duoneb) 3 ml 1X ONCE NEB Last administered on at 11:01; Start 05/01/18 at 11:00; Stop 05/01/18 at 11:01; Status DC Methylprednisolone Sodium Succinate (SOLU-Medrol 125MG VIAL) 125 mg 1X ONCE IV Last administered on 05/01/18at 11:00; Start 05/01/18 at 11:00; Stop 05/01/18 at 11:01; Status DC Epinephrine HCl (Adrenalin) 0.3 mg 1X ONCE SQ Last administered on 05/01/18at 10:53; Start 05/01/18 at 11:00; Stop 05/01/18 at 11:01; Status DC Epinephrine HCl (Adrenalin) 1 mg STK-MED ONCE .ROUTE ; Start 05/01/18 at 10:52; Stop 05/01/18 at 10:53; Status DC Albuterol Sulfate (Ventolin Neb Soln) 2.5 mg STK-MED ONCE .ROUTE ; Start at 11:07; Stop 05/01/18 at 11:08; Status DC Sodium Chloride 1,000 ml @ 75 mls/hr [id number] IV Last administered on at 03:15; Start 05/01/18 at 12:00; Stop 05/02/18 at 11:59; Status DC Albuterol/ Ipratropium (Duoneb) 3 ml RTQID NEB Last administered on 05/02/18at 15:49; Start 05/01/18 at 12:00; Stop 05/02/18 at 11:59; Status DC Methylprednisolone Sodium Succinate (SOLU-Medrol 40MG VIAL) 60 mg QID IV Last administered on 05/01/18at 21:12; Start 05/01/18 at 17:00; Stop 05/02/18 at 07:41 ; Status DC Montelukast Sodium (Singulair) 10 mg QHS PO Last administered on 05/04/18at 20: 39; Start 05/01/18 at 21:00 Metoprolol Tartrate (Lopressor Vial) 5 mg Q6HRS IVP Last administered on at 06:00; Start 05/01/18 at 18:00; Stop 05/04/18 at 11:54; Status DC Guaifenesin (Robitussin Dm) 10 ml PRN Q6HRS PRN PO COUGH 1ST CHOICE; Start at 17:15; Stop 05/03/18 at 13:42; Status DC Acetaminophen (Tylenol) 500 mg PRN Q6HRS PRN PO HEADACHE / TEMP; Start at 17:15 Acetaminophen/ Codeine Phosphate (Tylenol #3) 1 tab PRN Q6HRS PRN PO MODEARTE - SEVERE PAIN; Start 05/01/18 at 17:15 Ondansetron HCl (Zofran) 4 mg PRN Q6HRS PRN IV NAUSEA/VOMITING 1ST CHOICE; Start 05/01/18 at 17:15 Ondansetron HCl (Zofran Odt) 4 mg PRN Q6HRS PRN PO NAUSEA/VOMITING 1ST CHOICE; Start 05/01/18 at 17:15 Benzonatate (Tessalon Perle) 100 mg [id number] PO Last administered on 05/05/18at 08 :55; Start 05/01/18 at 21:00 Methylprednisolone Sodium Succinate (SOLU-Medrol 40MG VIAL) 60 mg Q8HRS IV Last administered on 05/03/18at 05:26; Start 05/02/18 at 14:00; Stop 05/03/18 at 07:03; Status DC Budesonide (Pulmicort) 0.5 mg RTBID NEB Last administered on 05/05/18at 08:44; Start 05/02/18 at 08:00 Enoxaparin Sodium (Lovenox 40mg Syringe) 40 mg Q24H SQ Last administered on at 08:55; Start 05/02/18 at 09:00 Pantoprazole Sodium (Protonix) 40 mg DAILYAC PO Last administered on 05/05/18at 09:04; Start 05/02/18 at 08:00 Albuterol/ Ipratropium (Duoneb) 3 ml RTQID NEB Last administered on 05/05/18at 08:44; Start 05/02/18 at 20:00 Methylprednisolone Sodium Succinate (SOLU-Medrol 40MG VIAL) 40 mg Q8HRS IV Last administered on 05/04/18at 06:04; Start 05/03/18 at 14:00; Stop 05/04/18 at 10:45; Status DC Ceftriaxone Sodium 1 gm/ Dextrose 50 ml @ 100 mls/hr Q24H IV ; Start 05/03/18 at 07:15; Status UNV Ceftriaxone Sodium (Rocephin) 1 gm Q24H IVP Last administered on 05/04/18at 07: 34; Start 05/03/18 at 07:30; Stop 05/04/18 at 15:37; Status DC Lactobacillus Rhamnosus (Culturelle) 1 cap BID PO Last administered on at 08:55; Start 05/03/18 at 21:00 Guaifenesin (Mucinex) 1,200 mg BID PO Last administered on 05/05/18at 08:56; Start 05/03/18 at 14:00 Methylprednisolone Sodium Succinate (SOLU-Medrol 40MG VIAL) 40 mg BID IV ; Start 05/04/18 at 21:00; Stop 05/04/18 at 21:00; Status DC Albuterol Sulfate (Ventolin Neb Soln) 2.5 mg PRN Q4HRS PRN NEB SHORTNESS OF BREATH; Start 05/04/18 at 10:45 Prednisone (Prednisone) 40 mg DAILY PO Last administered on 05/05/18at 09:00; Start 05/05/18 at 09:00 Cefpodoxime Proxetil (Vantin) 200 mg BID PO Last administered on 05/05/18at 09: 01; Start 05/05/18 at 09:00 Active Scripts Active Montelukast Sodium Tablet (Montelukast Sodium) 10 Mg Tablet 1 Tab PO DAILY Proair Hfa Inhaler (Albuterol Sulfate) 8.5 Gm Hfa.aer.ad 1 Puff INH PRN Q6HRS PRN Reported Symbicort 160-4.5 Mcg Inhaler (Budesonide/Formoterol Fumarate) 10.2 Gm Hfa.aer.ad 2 Puff IH BID Ventolin Hfa Inhaler (Albuterol Sulfate) 18 Gm Hfa.aer.ad 2 Puff INH Q4HRS PRN Vitals/I & O Vital Sign - Last 24 Hours 05/04/18 05/04/18 05/04/18 05/04/18 11:00 12:08 15:00 16:27 Temp 97.7 97.7 97.7 97.7 Pulse 87 85 Resp 20 20 B/P (MAP) 138/76 (96) 140/77 (98) Pulse Ox 96 95 96 O2 Delivery Nasal Cannula Room Air Nasal Cannula Room Air O2 Flow Rate 2.0 2.0 05/04/18 05/04/18 05/04/18 05/04/18 19:00 19:27 19:27 20:08 Temp 98.2 98.2 Pulse 96 Resp 18 B/P (MAP) 119/83 (95) Pulse Ox 93 95 95 O2 Delivery Nasal Cannula Room Air Room Air Room Air O2 Flow Rate 2.0 05/04/18 05/05/18 05/05/18 05/05/18 23:00 03:00 07:00 08:44 Temp 97.7 97.7 97.9 97.7 97.7 97.9 Pulse 92 81 80 Resp 18 18 18 B/P (MAP) 126/80 (95) 137/91 (106) 132/92 (105) Pulse Ox 91 97 94 96 O2 Delivery Room Air Room Air Room Air Room Air 05/05/18 08:45 Pulse Ox 96 O2 Delivery Room Air Intake and Output 05/04/18 05/04/18 05/05/18 15:00 23:00 07:00 Intake Total 360 ml 180 ml Balance 360 ml 180 ml JOSE GUILLEN MD May 05, 2018 10:09
[2018-05-05 11:00] VITALS: BP 117/75
--- NOTE | 2018-05-05 13:43 | PDOC ---
PULMONARY PROGRESS NOTES Subjective sob better, Vitals Vital Signs Date Time Temp Pulse Resp B/P (MAP) Pulse Ox O2 Delivery O2 Flow Rate FiO2 05/05/18 11:38 95 Room Air 05/05/18 11:00 97.9 94 18 117/75 (89) 97.9 05/04/18 19:00 2.0 ROS: No Nausea, No Chest Pain General: Alert, No acute distress HEENT: Other Lungs: Wheezing (occ ) Cardiovascular: S1, S2 Abdomen: Soft, Non-tender Neuro Exam: Alert, Oriented Extremities: No Edema Skin: Warm Labs Laboratory Tests Test 05/04/18 06:35 05/05/18 04:05 White Blood Count 14.4 x10^3/uL (4.0-11.0) 10.5 x10^3/uL (4.0-11.0) Red Blood Count 4.67 x10^6/uL (4.30-5.70) 4.62 x10^6/uL (4.30-5.70) Hemoglobin 15.5 g/dL (13.0-17.5) 15.5 g/dL (13.0-17.5) Hematocrit 45.0 % (39.0-53.0) 44.6 % (39.0-53.0) Mean Corpuscular Volume 96 fL (79-100) 97 fL (79-100) Mean Corpuscular Hemoglobin 33 pg (25-35) 34 pg (25-35) Mean Corpuscular Hemoglobin Concent 35 g/dL (31-37) 35 g/dL (31-37) Red Cell Distribution Width 14.0 % (11.5-14.5) 14.2 % (11.5-14.5) Platelet Count 206 x10^3/uL (140-400) 209 x10^3/uL (140-400) Neutrophils (%) (Auto) 89 % (31-73) 71 % (31-73) Lymphocytes (%) (Auto) 7 % (24-48) 19 % (24-48) Monocytes (%) (Auto) 4 % (0-9) 9 % (0-9) Eosinophils (%) (Auto) 0 % (0-3) 1 % (0-3) Basophils (%) (Auto) 0 % (0-3) 0 % (0-3) Neutrophils # (Auto) 12.7 x10^3uL (1.8-7.7) 7.4 x10^3uL (1.8-7.7) Lymphocytes # (Auto) 1.0 x10^3/uL (1.0-4.8) 2.0 x10^3/uL (1.0-4.8) Monocytes # (Auto) 0.6 x10^3/uL (0.0-1.1) 1.0 x10^3/uL (0.0-1.1) Eosinophils # (Auto) 0.0 x10^3/uL (0.0-0.7) 0.1 x10^3/uL (0.0-0.7) Basophils # (Auto) 0.0 x10^3/uL (0.0-0.2) 0.0 x10^3/uL (0.0-0.2) Sodium Level 139 mmol/L (136-145) 140 mmol/L (136-145) Potassium Level 4.0 mmol/L (3.5-5.1) 3.5 mmol/L (3.5-5.1) Chloride Level 103 mmol/L (98-107) 102 mmol/L (98-107) Carbon Dioxide Level 27 mmol/L (21-32) 30 mmol/L (21-32) Anion Gap 9 (6-14) 8 (6-14) Blood Urea Nitrogen 14 mg/dL (8-26) 18 mg/dL (8-26) Creatinine 0.9 mg/dL (0.7-1.3) 0.9 mg/dL (0.7-1.3) Estimated GFR (Cockcroft-Gault) 87.0 87.0 Glucose Level 161 mg/dL (70-99) 110 mg/dL (70-99) Calcium Level 8.0 mg/dL (8.5-10.1) 8.3 mg/dL (8.5-10.1) Laboratory Tests Test 05/05/18 04:05 White Blood Count 10.5 x10^3/uL (4.0-11.0) Red Blood Count 4.62 x10^6/uL (4.30-5.70) Hemoglobin 15.5 g/dL (13.0-17.5) Hematocrit 44.6 % (39.0-53.0) Mean Corpuscular Volume 97 fL (79-100) Mean Corpuscular Hemoglobin 34 pg (25-35) Mean Corpuscular Hemoglobin Concent 35 g/dL (31-37) Red Cell Distribution Width 14.2 % (11.5-14.5) Platelet Count 209 x10^3/uL (140-400) Neutrophils (%) (Auto) 71 % (31-73) Lymphocytes (%) (Auto) 19 % (24-48) Monocytes (%) (Auto) 9 % (0-9) Eosinophils (%) (Auto) 1 % (0-3) Basophils (%) (Auto) 0 % (0-3) Neutrophils # (Auto) 7.4 x10^3uL (1.8-7.7) Lymphocytes # (Auto) 2.0 x10^3/uL (1.0-4.8) Monocytes # (Auto) 1.0 x10^3/uL (0.0-1.1) Eosinophils # (Auto) 0.1 x10^3/uL (0.0-0.7) Basophils # (Auto) 0.0 x10^3/uL (0.0-0.2) Sodium Level 140 mmol/L (136-145) Potassium Level 3.5 mmol/L (3.5-5.1) Chloride Level 102 mmol/L (98-107) Carbon Dioxide Level 30 mmol/L (21-32) Anion Gap 8 (6-14) Blood Urea Nitrogen 18 mg/dL (8-26) Creatinine 0.9 mg/dL (0.7-1.3) Estimated GFR (Cockcroft-Gault) 87.0 Glucose Level 110 mg/dL (70-99) Calcium Level 8.3 mg/dL (8.5-10.1) Medications Active Scripts Medications Dose Route/Sig Max Daily Dose Days Date Category Symbicort 160-4.5 Mcg Inhaler (Budesonide/Formoterol Fumarate) 10.2 Gm Hfa.aer.ad 2 Puff IH BID 05/01/18 Reported Ventolin Hfa Inhaler (Albuterol Sulfate) 18 Gm Hfa.aer.ad 2 Puff INH Q4HRS PRN 05/01/18 Reported Montelukast Sodium Tablet (Montelukast Sodium) 10 Mg Tablet 1 Tab PO DAILY 04/23/17 Rx Proair Hfa Inhaler (Albuterol Sulfate) 8.5 Gm Hfa.aer.ad 1 Puff INH PRN Q6HRS PRN 04/23/17 Rx Impression . IMPRESSION: 1. Acute respiratory failure secondary to acute exacerbation of asthma and acute bronchitis. 2. Acute exacerbation of asthma. 3. Snoring and excessive daytime sleepiness, probable obstructive sleep apnea-hypopnea syndrome. 4. acute bronchitis Plan . 1. off oxygen. 2. Continue bronchodilator. 3. PO steroids 4. Continue Singulair. 5. inhaled corticosteroid. 6. Lovenox for DVT prophylaxis. 7. sleep study as an outpatient. 8. Po abx dc home today discussed w rn, pt BHAVIK SÁNCHEZ MD May 05, 2018 13:43
[2018-05-05] MEDS ORDERED: POTASSIUM CHLORIDE 20 MEQ TABLET.ER. PO ONE (13:45)
--- NOTE | 2018-05-05 13:48 | PDOC3 ---
Discharge Summary Date of Admission: May 01, 2018 Date of Discharge: May 05, 2018 Follow-Up: 1-2 days Admitting Diagnosis comment: discharge diagnosis Chief Complaint CC: Acute asthmatic exacerbation acute hypoxic resp failure plan: fu with pulm prednisonE 40mg daily dc metoprolol iv cont duoneb, add albuterol prn D/W DR Adan home today History of Present Illness History of Present Illness Pt. seen and examined Pt. alert and oriented; affect good VSS DW nursing; pt. has wheezing episodes 1x/month; also discussed inhaled steroids , albuterol and Methylin tx denies smoking feels sob better bl lungs still tight and mild wheezing on o2 2L, no home o2 no smoke Vitals Vitals Vital Signs Date Time Temp Pulse Resp B/P (MAP) Pulse Ox O2 Delivery O2 Flow Rate FiO2 05/05/18 08:45 96 Room Air 05/05/18 07:00 97.9 80 18 132/92 (105) 97.9 05/04/18 19:00 2.0 Physical Exam Physical Exam is on room air General: Alert, Oriented X3, Cooperative, No acute distress Heart: Regular rate, Normal S1, Normal S2 Lungs: Clear, Other ( mild bl lungs tightness and mild wheezing) Abdomen: Normal bowel sounds, Soft Extremities: No clubbing, No cyanosis Skin: No rashes, No breakdown FINAL DIAGNOSIS Problems Medical Problems: (1) Asthma attack Status: Acute Brief Hospital Course Mr. Chacon is a 57 old [sex] who presented with [ ] CONDITION AT DISCHARGE: Improved Discharge Medications Current Medications Albuterol/ Ipratropium (Duoneb) 3 ml 1X ONCE NEB Last administered on at 11:01; Start 05/01/18 at 11:00; Stop 05/01/18 at 11:01; Status DC Methylprednisolone Sodium Succinate (SOLU-Medrol 125MG VIAL) 125 mg 1X ONCE IV Last administered on 05/01/18at 11:00; Start 05/01/18 at 11:00; Stop 05/01/18 at 11:01; Status DC Epinephrine HCl (Adrenalin) 0.3 mg 1X ONCE SQ Last administered on 05/01/18at 10:53; Start 05/01/18 at 11:00; Stop 05/01/18 at 11:01; Status DC Epinephrine HCl (Adrenalin) 1 mg STK-MED ONCE .ROUTE ; Start 05/01/18 at 10:52; Stop 05/01/18 at 10:53; Status DC Albuterol Sulfate (Ventolin Neb Soln) 2.5 mg STK-MED ONCE .ROUTE ; Start at 11:07; Stop 05/01/18 at 11:08; Status DC Sodium Chloride 1,000 ml @ 75 mls/hr [id number] IV Last administered on at 03:15; Start 05/01/18 at 12:00; Stop 05/02/18 at 11:59; Status DC Albuterol/ Ipratropium (Duoneb) 3 ml RTQID NEB Last administered on 05/02/18at 15:49; Start 05/01/18 at 12:00; Stop 05/02/18 at 11:59; Status DC Methylprednisolone Sodium Succinate (SOLU-Medrol 40MG VIAL) 60 mg QID IV Last administered on 05/01/18at 21:12; Start 05/01/18 at 17:00; Stop 05/02/18 at 07:41 ; Status DC Montelukast Sodium (Singulair) 10 mg QHS PO Last administered on 05/04/18at 20: 39; Start 05/01/18 at 21:00 Metoprolol Tartrate (Lopressor Vial) 5 mg Q6HRS IVP Last administered on at 06:00; Start 05/01/18 at 18:00; Stop 05/04/18 at 11:54; Status DC Guaifenesin (Robitussin Dm) 10 ml PRN Q6HRS PRN PO COUGH 1ST CHOICE; Start at 17:15; Stop 05/03/18 at 13:42; Status DC Acetaminophen (Tylenol) 500 mg PRN Q6HRS PRN PO HEADACHE / TEMP; Start at 17:15 Acetaminophen/ Codeine Phosphate (Tylenol #3) 1 tab PRN Q6HRS PRN PO MODEARTE - SEVERE PAIN; Start 05/01/18 at 17:15 Ondansetron HCl (Zofran) 4 mg PRN Q6HRS PRN IV NAUSEA/VOMITING 1ST CHOICE; Start 05/01/18 at 17:15 Ondansetron HCl (Zofran Odt) 4 mg PRN Q6HRS PRN PO NAUSEA/VOMITING 1ST CHOICE; Start 05/01/18 at 17:15 Benzonatate (Tessalon Perle) 100 mg [id number] PO Last administered on 05/05/18 08 :55; Start 05/01/18 at 21:00 Methylprednisolone Sodium Succinate (SOLU-Medrol 40MG VIAL) 60 mg Q8HRS IV Last administered on 05/03/18at 05:26; Start 05/02/18 at 14:00; Stop 05/03/18 at 07:03; Status DC Budesonide (Pulmicort) 0.5 mg RTBID NEB Last administered on 05/05/18 08:44; Start 05/02/18 at 08:00 Enoxaparin Sodium (Lovenox 40mg Syringe) 40 mg Q24H SQ Last administered on 08:55; Start 05/02/18 at 09:00 Pantoprazole Sodium (Protonix) 40 mg DAILYAC PO Last administered on 05/05/18at 09:04; Start 05/02/18 at 08:00 Albuterol/ Ipratropium (Duoneb) 3 ml RTQID NEB Last administered on 05/05/18at 11:37; Start 05/02/18 at 20:00 Methylprednisolone Sodium Succinate (SOLU-Medrol 40MG VIAL) 40 mg Q8HRS IV Last administered on 05/04/18at 06:04; Start 05/03/18 at 14:00; Stop 05/04/18 at 10:45; Status DC Ceftriaxone Sodium 1 gm/ Dextrose 50 ml @ 100 mls/hr Q24H IV ; Start 05/03/18 at 07:15; Status UNV Ceftriaxone Sodium (Rocephin) 1 gm Q24H IVP Last administered on 05/04/18at 07: 34; Start 05/03/18 at 07:30; Stop 05/04/18 at 15:37; Status DC Lactobacillus Rhamnosus (Culturelle) 1 cap BID PO Last administered on at 08:55; Start 05/03/18 at 21:00 Guaifenesin (Mucinex) 1,200 mg BID PO Last administered on 05/05/18at 08:56; Start 05/03/18 at 14:00 Methylprednisolone Sodium Succinate (SOLU-Medrol 40MG VIAL) 40 mg BID IV ; Start 05/04/18 at 21:00; Stop 05/04/18 at 21:00; Status DC Albuterol Sulfate (Ventolin Neb Soln) 2.5 mg PRN Q4HRS PRN NEB SHORTNESS OF BREATH; Start 05/04/18 at 10:45 Prednisone (Prednisone) 40 mg DAILY PO Last administered on 05/05/18at 09:00; Start 05/05/18 at 09:00 Cefpodoxime Proxetil (Vantin) 200 mg BID PO Last administered on 05/05/18at 09: 01; Start 05/05/18 at 09:00 Potassium Chloride (Klor-Con) 40 meq 1X ONCE PO ; Start 05/05/18 at 13:45; Stop 05/05/18 at 13:46 Active Scripts Active Montelukast Sodium Tablet (Montelukast Sodium) 10 Mg Tablet 1 Tab PO DAILY Proair Hfa Inhaler (Albuterol Sulfate) 8.5 Gm Hfa.aer.ad 1 Puff INH PRN Q6HRS PRN Reported Symbicort 160-4.5 Mcg Inhaler (Budesonide/Formoterol Fumarate) 10.2 Gm Hfa.aer.ad 2 Puff IH BID Ventolin Hfa Inhaler (Albuterol Sulfate) 18 Gm Hfa.aer.ad 2 Puff INH Q4HRS PRN Vital Signs Vital Signs Date Time Temp Pulse Resp B/P (MAP) Pulse Ox O2 Delivery O2 Flow Rate FiO2 05/05/18 11:38 95 Room Air 05/05/18 11:00 97.9 94 18 117/75 (89) 97.9 05/04/18 19:00 2.0 Labs Laboratory Tests Test 05/04/18 06:35 05/05/18 04:05 White Blood Count 14.4 x10^3/uL (4.0-11.0) 10.5 x10^3/uL (4.0-11.0) Red Blood Count 4.67 x10^6/uL (4.30-5.70) 4.62 x10^6/uL (4.30-5.70) Hemoglobin 15.5 g/dL (13.0-17.5) 15.5 g/dL (13.0-17.5) Hematocrit 45.0 % (39.0-53.0) 44.6 % (39.0-53.0) Mean Corpuscular Volume 96 fL (79-100) 97 fL (79-100) Mean Corpuscular Hemoglobin 33 pg (25-35) 34 pg (25-35) Mean Corpuscular Hemoglobin Concent 35 g/dL (31-37) 35 g/dL (31-37) Red Cell Distribution Width 14.0 % (11.5-14.5) 14.2 % (11.5-14.5) Platelet Count 206 x10^3/uL (140-400) 209 x10^3/uL (140-400) Neutrophils (%) (Auto) 89 % (31-73) 71 % (31-73) Lymphocytes (%) (Auto) 7 % (24-48) 19 % (24-48) Monocytes (%) (Auto) 4 % (0-9) 9 % (0-9) Eosinophils (%) (Auto) 0 % (0-3) 1 % (0-3) Basophils (%) (Auto) 0 % (0-3) 0 % (0-3) Neutrophils # (Auto) 12.7 x10^3uL (1.8-7.7) 7.4 x10^3uL (1.8-7.7) Lymphocytes # (Auto) 1.0 x10^3/uL (1.0-4.8) 2.0 x10^3/uL (1.0-4.8) Monocytes # (Auto) 0.6 x10^3/uL (0.0-1.1) 1.0 x10^3/uL (0.0-1.1) Eosinophils # (Auto) 0.0 x10^3/uL (0.0-0.7) 0.1 x10^3/uL (0.0-0.7) Basophils # (Auto) 0.0 x10^3/uL (0.0-0.2) 0.0 x10^3/uL (0.0-0.2) Sodium Level 139 mmol/L (136-145) 140 mmol/L (136-145) Potassium Level 4.0 mmol/L (3.5-5.1) 3.5 mmol/L (3.5-5.1) Chloride Level 103 mmol/L (98-107) 102 mmol/L (98-107) Carbon Dioxide Level 27 mmol/L (21-32) 30 mmol/L (21-32) Anion Gap 9 (6-14) 8 (6-14) Blood Urea Nitrogen 14 mg/dL (8-26) 18 mg/dL (8-26) Creatinine 0.9 mg/dL (0.7-1.3) 0.9 mg/dL (0.7-1.3) Estimated GFR (Cockcroft-Gault) 87.0 87.0 Glucose Level 161 mg/dL (70-99) 110 mg/dL (70-99) Calcium Level 8.0 mg/dL (8.5-10.1) 8.3 mg/dL (8.5-10.1) Laboratory Tests Test 05/05/18 04:05 White Blood Count 10.5 x10^3/uL (4.0-11.0) Red Blood Count 4.62 x10^6/uL (4.30-5.70) Hemoglobin 15.5 g/dL (13.0-17.5) Hematocrit 44.6 % (39.0-53.0) Mean Corpuscular Volume 97 fL (79-100) Mean Corpuscular Hemoglobin 34 pg (25-35) Mean Corpuscular Hemoglobin Concent 35 g/dL (31-37) Red Cell Distribution Width 14.2 % (11.5-14.5) Platelet Count 209 x10^3/uL (140-400) Neutrophils (%) (Auto) 71 % (31-73) Lymphocytes (%) (Auto) 19 % (24-48) Monocytes (%) (Auto) 9 % (0-9) Eosinophils (%) (Auto) 1 % (0-3) Basophils (%) (Auto) 0 % (0-3) Neutrophils # (Auto) 7.4 x10^3uL (1.8-7.7) Lymphocytes # (Auto) 2.0 x10^3/uL (1.0-4.8) Monocytes # (Auto) 1.0 x10^3/uL (0.0-1.1) Eosinophils # (Auto) 0.1 x10^3/uL (0.0-0.7) Basophils # (Auto) 0.0 x10^3/uL (0.0-0.2) Sodium Level 140 mmol/L (136-145) Potassium Level 3.5 mmol/L (3.5-5.1) Chloride Level 102 mmol/L (98-107) Carbon Dioxide Level 30 mmol/L (21-32) Anion Gap 8 (6-14) Blood Urea Nitrogen 18 mg/dL (8-26) Creatinine 0.9 mg/dL (0.7-1.3) Estimated GFR (Cockcroft-Gault) 87.0 Glucose Level 110 mg/dL (70-99) Calcium Level 8.3 mg/dL (8.5-10.1) Allergies Allergies Coded Allergies Type Severity Reaction Last Updated Verified No Known Drug Allergies 04/21/17 No Disposition/Orders: D/C to Home Patient Instructions d/c planning 32 min JOSE GUILLEN MD May 05, 2018 13:48
--- NOTE | 2018-05-05 13:50 | DISCH ---
DISCHARGE INSTRUCTIONS Condition on Discharge Condition on Discharge: Stable Activity After Discharge Activity Instructions for Disc: Resume previous activity, Activity as tolerated Lifting Instructions after Dis: No heavy lifting, No pulling or pushing Exercise Instruction after Dis: Walk 10 min, 3 x per day Driving Instructions after Dis: Do not drive today Weight Bearing Status after Di: As tolerated Diet after Discharge Diet after Discharge: Cardiac Diet Texture: Regular Liquid Texture: Thin Liquid Wound Incision Care Wound/Incision Care: No wound care needed Checks after Discharge Checks after discharge: Check blood press - daily Contacting the DR. after DC Call your doctor for: If your condition worsens Treatment/Equipment after DC Adaptive Equipment Issued: JOSE Rodriguez MD May 05, 2018 13:50
[2018-05-05] MEDS ORDERED: Pantoprazole PO (13:56)
[2018-05-05] MEDS ORDERED: CEFP100T PO (13:56)
[2018-05-05] MEDS ORDERED: BENZ-8 PO (13:56)
[2018-05-05] MEDS ORDERED: PRED20TA PO (13:56)
== END 2018-05-05 16:25 | disposition home or self-care (01) | DRG 189 ==
LOC: ER 10:40 → 5 NORTH 11:33
PROVIDERS: ADMIT Internal Medicine; ATTEND Internal Medicine
DX: J96.20 Acute and chronic respiratory failure, unspecified whether with hypoxia or hypercapnia (principal); J45.901 Unspecified asthma with (acute) exacerbation; J44.0 Chronic obstructive pulmonary disease with (acute) lower respiratory infection; J20.9 Acute bronchitis, unspecified; I50.9 Heart failure, unspecified; Z82.5 Family history of asthma and other chronic lower respiratory diseases
CPT/HCPCS: 36415; 36600; 71045; 80048; 80053; 82550; 82553; 82805; 83735; 83880; 84484; 85007; 85025; 93005; 94618; 94640; 94644; 94760; 96372; 96374; 99291; J0171; J0696; J1650; J2920; J2930; J3490; J7030; J7512; J7620; J7626

== ENCOUNTER 2021-03-31 16:52 | Emergency (ER) | payer SELFPAY ==
[~2021-03-31] VITALS: Ht 162.6 cm; Wt 62.4 kg
[~2021-03-31 16:52] MED LIST changes: +ALBU2.5V8 INH; +BENZ-8 PO; +BUDE10.2 IH; +CEFP100T PO; +MONT10TA49 PO; -MONT10TA9 PO; -PANT40TA5 PO; +PANT40TA77 PO; +PRED20TA PO; -PROAIR HFA8.5 GM INH; +Pantoprazole PO; +VENTOLIN HFA18 GM INH
[2021-03-31] MEDS ORDERED: DEXAMETHASONE SOD PHOS 20 MG/5 ML VIAL. IV ONE (17:30)
--- NOTE | 2021-03-31 17:37 | PHYS DOC ---
Past Medical History Past Medical History: Asthma (JUANELAINE Dru SATELLITE TECHNICIAN) Past Surgical History: No Surgical History (JUANELAINE Dru SATELLITE TECHNICIAN) Smoking Status: Never Smoker Alcohol Use: None Drug Use: None (ELAINE MARTINEZ Dru [place]) General Adult EDM: Chief Complaint: SHORTNESS OF BREATH HPI: HPI: Patient is a 60 year old male with history of asthma presenting today complaining of shortness of breath and cough, symptoms for 3 days. Patient states he has tried using his albuterol inhaler with no relief. Denies any fever. Denies any chest pain. (ELAINE MARTINEZ SATELLITE TECHNICIAN) Review of Systems: Review of Systems: Constitutional: Denies fever or chills. [] Eyes: Denies change in visual acuity. [] HENT: Denies nasal congestion or sore throat. [] Respiratory: Reports cough and shortness of breath. [] Cardiovascular: Denies chest pain or edema. [] GI: Denies abdominal pain, nausea, vomiting, bloody stools or diarrhea. [] : Denies dysuria. [] Musculoskeletal: Denies back pain or joint pain. [] Integument: Denies rash. [] Neurologic: Denies headache, focal weakness or sensory changes. [] Psychiatric: Denies depression or anxiety. [] (ELAINE MARTINEZ Dru SATELLITE TECHNICIAN) Heart Score: C/O Chest Pain: N/A Risk Factors: Risk Factors: DM, Current or recent (<one month) smoker, HTN, HLP, family history of CAD, obesity. Risk Scores: Score 0 - 3: 2.5% MACE over next 6 weeks - Discharge Home Score 4 - 6: 20.3% MACE over next 6 weeks - Admit for Clinical Observation Score 7 - 10: 72.7% MACE over next 6 weeks - Early Invasive Strategies (ELAINE MARTINEZ SATELLITE TECHNICIAN) Current Medications: Current Medications Medications (Trade) Dose Ordered Sig/Renae Start Time Stop Time Status Last Admin Dose Admin Dexamethasone Sodium Phosphate (Decadron) 10 mg 1X ONCE 03/31/21 17:30 03/31/21 17:31 DC (BALizzELAINE Dru SATELLITE TECHNICIAN) Allergies: Allergies: Allergies Coded Allergies Type Severity Reaction Last Updated Verified No Known Drug Allergies 03/31/21 No (ACRONNELLELAINE Zamudio APRN) Physical Exam: PE: Constitutional: Well developed, well nourished, no acute distress, non-toxic appearance. [] HENT: Normocephalic, atraumatic, bilateral external ears normal, oropharynx moist, no oral exudates, nose normal. [] Eyes: PERRLA, EOMI, conjunctiva normal, no discharge. [] Neck: Normal range of motion, no tenderness, supple, no stridor. [] Cardiovascular:Heart rate regular rhythm, no murmur [] Lungs & Thorax: tight chest Abdomen: Bowel sounds normal, soft, no tenderness, no masses, no pulsatile masses. [] Skin: Warm, dry, no erythema, no rash. [] Back: No tenderness, no CVA tenderness. [] Extremities: No tenderness, no cyanosis, no clubbing, ROM intact, no edema. [] Neurologic: Alert and oriented X 3, normal motor function, normal sensory function, no focal deficits noted. [] Psychologic: Appears uncomfortable, restless (ELAINE MARTINEZ SATELLITE TECHNICIAN) Current Patient Data: Vital Signs: Vital Signs Date Time Temp Pulse Resp B/P (MAP) Pulse Ox O2 Delivery O2 Flow Rate FiO2 03/31/21 17:17 98.5 94 28 117/75 (89) 90 Room Air 98.5 (ELAINE MARTINEZ SATELLITE TECHNICIAN) EKG: EK interpreted by Dr. Cardona sinus rhythm, biphasic V3, no STEMI heart rate 90 [] (ELAINE MARTINEZ SATELLITE TECHNICIAN) Radiology/Procedures: Radiology/Procedures: []PROCEDURE: PORTABLE CHEST 1V XR CHEST 1V Clinical History: Reason: SOA / Spl. Instructions: / History: Technique: AP view of the chest was obtained at 03/31/2021 5:29 PM. Comparison: May 01, 2018. Findings: The cardiomediastinal silhouette is normal. The pulmonary vasculature is normal. The lungs and pleural margins are clear. Impression: No evidence of an acute cardiopulmonary process. Electronically signed by: Karla Gill III, MD (03/31/2021 6:09 PM) [facility] DICTATED and SIGNED BY: KARLA GILL III, MD DATE: 03/31/21 [id number] (ELAINE MARTINEZ SATELLITE TECHNICIAN) Course & Med Decision Making: Course & Med Decision Making Pertinent Labs and Imaging studies reviewed. (See chart for details) This is a 60-year-old male patient presented to the ED today complaining of cough or shortness of breath, symptoms for 3 days. Vitals on arrival to the ED temperature 98.5, heart rate 94, respiration 28 on room air, O2 sats 90% on room air, blood pressure 117/75. Negative rapid Covid test. Chest x-ray interpreted by radiologist as negative for any acute findings. Patient was given a DuoNeb treatment in the ED with the steroids. Feeling better. Oxygen was turned off. O2 sats 95% on room air. Discharge to home. Follow-up with PCP next week Patient also complained of constipation prior to discharge. Mag citrate and Dulcolax were given in the ED. Educated on prevention and management of constipation (ELAINE MARTINEZ APRN) Course & Med Decision Making Patients Care and treatment plan provided by ER Nurse Practitioner. I was available for consult. Patient's chart reviewed. (ANITA HARGROVE DO) Dylan Disclaimer: Dylan Disclaimer: This electronic medical record was generated, in whole or in part, using a voice recognition dictation system. (ELAINE MARTINEZ APRN) Departure Departure Impression: Primary Impression: Asthma exacerbation Qualified Codes: J45.21 - Mild intermittent asthma with (acute) exacerbation Additional Impression: Constipation Qualified Codes: K59.00 - Constipation, unspecified Disposition: HOME / SELF CARE / HOMELESS Condition: STABLE Referrals: NO PCP (PCP) Follow-up with your doctor in 1 week Patient Instructions: Asthma, Adult, [id number], Constipation, Adult Additional Instructions: You were evaluated for asthma exacerbation. We encourage you to use breathing treatments as needed. We will send you home with prednisone. Take it as prescribed until completed. Follow-up with your doctor next week. Come back to the ED at any point symptoms worsen Please increase your dietary fiber intake. Increase your water intake. Take MiraLAX every day to help reduce incidence of constipation. Anytime you are constipated consider taking magnesium Site-Rite or milk of magnesium. You can also take Dulcolax if you are constipated. If you do not have a bowel movement by tonight please perform an enema. Scripts Polyethylene Glycol 3350 (MIRALAX) 119 Gm Powder 17 GM PO DAILY for constipation, #527 GM 0 Refills dissolve in water Prov: ELAINE MARTINEZ APRN 03/31/21 Magnesium Citrate (MAGNESIUM CITRATE) 296 Ml Solution 296 ML PO ONCE, #296 ML Prov: ELAINE MARTINEZ APRN 03/31/21 Albuterol Sulfate (Proair Hfa) 8.5 Gm Hfa.aer.ad 2 PUFF IH PRN Q4-6HRS PRN for wheezing for 21 Days, #1 INHALER 0 Refills Prov: ELAINE MARTINEZ APRN 03/31/21 Prednisone (PREDNISONE) 50 Mg Tablet 1 TAB PO DAILY, #5 TAB Prov: ELAINE MARTINEZ APRN 03/31/21 ELAINE MARTINEZ APRN Mar 31, 2021 17:37 ANITA HARGROVE DO Apr 01, 2021 18:32
[2021-03-31 17:48] LABS: BASO # 0.1 x10^3/uL (0.0-0.2); BASO % 1 % (0-3); EOS # 1.2 x10^3/uL (0.0-0.7); EOS % 14 % (0-3); HEMATOCRIT 45.2 % (39.0-53.0); HEMOGLOBIN 15.8 g/dL (13.0-17.5); LYMPH # 1.5 x10^3/uL (1.0-4.8); LYMPH % 18 % (24-48); MEAN CORPUSCULAR HEMOGLOBIN 34 pg (25-35); MEAN CORPUSCULAR HGB CONC 35 g/dL (31-37); MEAN CORPUSCULAR VOLUME 97 fL (79-100); MONO # 0.8 x10^3/uL (0.0-1.1); MONO % 9 % (0-9); NEUT % 58 % (31-73); PLATELET COUNT 180 x10^3/uL (140-400); RED BLOOD COUNT 4.66 x10^6/uL (4.30-5.70); RED CELL DISTRIBUTION WIDTH 12.9 % (11.5-14.5); WHITE BLOOD COUNT 8.6 x10^3/uL (4.0-11.0)
--- NOTE | 2021-03-31 17:53 | EKG ---
[facility] [address] [place] [address] Test Date: 2021-03-31 Test Time: 17:14:43 Pat Name: JAMES LONDON Department: Room: Gender: M Receiving Weigher: : 1960 Requested By: ELAINE MARTINEZ Order Number: [id number] Reading MD: Measurements Intervals [place] Rate: 98 P: 61 CA: 106 QRS: 69 QRSD: 92 T: 17 QT: 328 QTc: 421 Interpretive Statements SINUS RHYTHM VENTRICULAR PREMATURE COMPLEX(ES) INCOMPLETE RIGHT BUNDLE BRANCH BLOCK T ABNORMALITY IN ANTERIOR LEADS NON SPECIFIC ST DEPRESSION ABNORMAL ECG RI6.02 No previous ECG available for comparison
[2021-03-31 17:59] LABS: CALCIUM 9.1 mg/dL (8.5-10.1); GFR 76.2
[2021-03-31] MEDS ORDERED: IPRATRPIUM/ALBUTEROL 0.5/2.5MG 3 ML NEBU. NEB ONE (18:00)
[2021-03-31 18:05] LABS: ALBUMIN 3.8 g/dL (3.4-5.0); ALBUMIN/GLOBULIN RATIO 1.2 (1.0-1.7); MAGNESIUM 2.4 mg/dL (1.8-2.4); TOTAL BILIRUBIN 0.8 mg/dL (0.2-1.0); TOTAL PROTEIN 6.9 g/dL (6.4-8.2)
--- NOTE | 2021-03-31 18:11 | RAD ---
XR CHEST 1V Clinical History: Reason: SOA / Spl. Instructions: / History: Technique: AP view of the chest was obtained at 03/31/2021 5:29 PM. Comparison: May 01, 2018. Findings: The cardiomediastinal silhouette is normal. The pulmonary vasculature is normal. The lungs and pleura l margins are clear. Impression: No evidence of an acute cardiopulmonary process. Electronically signed by: Pacheco Zimmerman III, MD (03/31/2021 6:09 PM) [facility]
[2021-03-31 18:46] LABS: % EOS 12 % (0-5); % LYMPHS 14 % (24-48); % MONOS 5 % (0-10); % SEGS 69 % (35-66); PLT ESTIMATE ADEQUATE (ADEQUATE)
[2021-03-31] MEDS ORDERED: PRED50TA PO (19:54)
[2021-03-31] MEDS ORDERED: MAGN296S68 PO (19:54)
[2021-03-31] MEDS ORDERED: ALBU2.5V8 IH (19:54)
[2021-03-31] MEDS ORDERED: POLY119P4 PO (19:54)
[2021-03-31] MEDS ORDERED: BISACODYL 5 MG TABLET.DR. PO STA (19:58)
[2021-03-31 20:00] VITALS: BP 137/86
[2021-03-31] MEDS ORDERED: MAGNESIUM CITRATE 296 ML SOLUTION. PO ONE (20:00)
--- NOTE | 2021-04-02 10:42 | NUR ---
IP: Attempted to contact pt concerning covid results. No answer, left a voicemail to return the call.
--- NOTE | 2021-04-03 10:08 | NUR ---
IP: Attempted a second time to contact pt concerning covid results. Again no answer, left a voicemail to return the call.
== END 2021-03-31 20:35 | disposition home or self-care (01) ==
LOC: ER 16:52
DX: J45.21 Mild intermittent asthma with (acute) exacerbation (principal); Z20.822 Contact with and (suspected) exposure to COVID-19; K59.00 Constipation, unspecified
CPT/HCPCS: 36415; 71045; 80053; 83605; 83735; 83880; 84484; 85007; 85025; 87040; 87426; 93005; 94640; 96374; 99285; J1100; U0003; U0005